=== PATIENT | female | born 1935 | race Caucasian/White ===

== ENCOUNTER 2016-11-24 09:33 | Outpatient (CLI) | payer OTHER ==
[2016-02-16 14:55] VITALS: BMI 23.0
[2016-11-24 12:53] LABS: BASOPHILS % (AUTO) 0.6 % (0.0-3.0); EOSINOPHILS # (AUTO) 0.1 K/ul (0.0-0.7); EOSINOPHILS % (AUTO) 2.5 % (0.0-7.0); HEMATOCRIT 40.7 % (37.0-47.0); HEMOGLOBIN 13.7 g/dl (12.0-16.0); IMMATURE GRANULOCYTE % (AUTO) 0.2 % (0.0-5.0); LYMPHOCYTES # (AUTO) 1.1 K/uL (0.60-3.4); MEAN CORPUSCULAR HEMOGLOBIN 30.9 pg (27.0-31.0); MEAN CORPUSCULAR HGB CONC 33.7 (31.8-35.4); MEAN CORPUSCULAR VOLUME 91.9 fl (81.0-99.0); MONOCYTES # (AUTO) 0.5 K/uL (0.4-2.0); MONOCYTES % (AUTO) 10.1 (0-10); NEUTROPHILS % (AUTO) 63.6; PLATELET COUNT 231 10^3/uL (140-440); RED BLOOD COUNT 4.43 10^6/ul (4.20-5.40); WHITE BLOOD COUNT 4.74 K/ul (4.6-10.2)
[2016-11-24 13:11] LABS: BILIRUBIN,URINE Negative (NEGATIVE); KETONES,URINE Negative (NEGATIVE); LEUKOCYTE ESTERASE ,URINE Negative (NEGATIVE); NITRITE,URINE Negative (NEGATIVE); PROTEIN,URINE Negative (NEGATIVE); URINE, BLOOD Negative (NEGATIVE)
[2016-11-24 13:15] LABS: ADD URINE MICROSCOPIC NO
[2016-11-24 13:23] LABS: ALBUMIN 3.5 g/dL (3.4-5.0); ANION GAP 13.7; BILIRUBIN,TOTAL 0.41 mg/dL (0.00-1.20); BUN/CREATININE RATIO 16.66; CALCIUM 9.5 mg/dL (8.2-10.2); CHOL/HDL RATIO 2.5 (4.5-5.5); CREATININE 1.08 mg/dL (0.60-1.30); POTASSIUM 3.7 mmol/L (3.5-5.10)
== END 2016-11-24 09:34 | disposition home or self-care (01) ==
LOC: LAB 09:33
PROVIDERS: ATTEND General Practice
DX: D64.9 Anemia, unspecified (principal); I10 Essential (primary) hypertension; Z79.899 Other long term (current) drug therapy
CPT/HCPCS: 36415; 80053; 80061; 81001; 85025

== ENCOUNTER 2016-12-15 15:59 | Outpatient (CLI) ==
[2016-02-16 14:55] VITALS: BMI 23.0
[2016-12-15 17:28] LABS: BILIRUBIN,URINE Negative (NEGATIVE); KETONES,URINE Negative (NEGATIVE); LEUKOCYTE ESTERASE ,URINE Negative (NEGATIVE); NITRITE,URINE Negative (NEGATIVE); PROTEIN,URINE Negative (NEGATIVE); URINE, BLOOD Negative (NEGATIVE)
[2016-12-15 17:35] LABS: ADD URINE MICROSCOPIC NO
== END 2016-12-15 16:00 | disposition home or self-care (01) ==
LOC: LAB 15:59
PROVIDERS: ATTEND General Practice
DX: R30.0 Dysuria (principal)
CPT/HCPCS: 81001

== ENCOUNTER 2017-04-07 11:46 | Outpatient (CLI) | payer OTHER ==
[2016-02-16 14:55] VITALS: BMI 23.0
[2017-04-07 13:03] LABS: BASOPHILS % (AUTO) 0.6 % (0.0-3.0); EOSINOPHILS # (AUTO) 0.1 K/ul (0.0-0.7); EOSINOPHILS % (AUTO) 2.6 % (0.0-7.0); HEMATOCRIT 41.7 % (37.0-47.0); HEMOGLOBIN 14.1 g/dl (12.0-16.0); IMMATURE GRANULOCYTE % (AUTO) 0.2 % (0.0-5.0); LYMPHOCYTES # (AUTO) 1.2 K/uL (0.60-3.4); LYMPHOCYTES % (AUTO) 24.9 (10.0-50.0); MEAN CORPUSCULAR HEMOGLOBIN 30.9 pg (27.0-31.0); MEAN CORPUSCULAR HGB CONC 33.8 (31.8-35.4); MEAN CORPUSCULAR VOLUME 91.2 fl (81.0-99.0); MONOCYTES # (AUTO) 0.5 K/uL (0.4-2.0); NEUTROPHILS # (AUTO) 2.9 K/ul (2.0-6.9); NEUTROPHILS % (AUTO) 61.7; PLATELET COUNT 230 10^3/uL (140-440); RED BLOOD COUNT 4.57 10^6/ul (4.20-5.40); WHITE BLOOD COUNT 4.62 K/ul (4.6-10.2)
[2017-04-07 13:17] LABS: ALBUMIN 3.5 g/dL (3.4-5.0); ALBUMIN/GLOBULIN RATIO 1.09; ANION GAP 11.2; BILIRUBIN,TOTAL 0.49 mg/dL (0.00-1.20); BILIRUBIN,URINE Negative (NEGATIVE); BUN/CREATININE RATIO 17.54; CALCIUM 8.9 mg/dL (8.2-10.2); CHOL/HDL RATIO 2.6 (4.5-5.5); CREATININE 1.14 mg/dL (0.60-1.30); KETONES,URINE Trace (NEGATIVE); LEUKOCYTE ESTERASE ,URINE Negative (NEGATIVE); NITRITE,URINE Negative (NEGATIVE); PH,URINE 6.5 (5-9); POTASSIUM 3.2 mmol/L (3.5-5.10); PROTEIN,URINE 1+ (NEGATIVE); TOTAL PROTEIN 6.7 g/dL (5.8-8.1); URINE, BLOOD Negative (NEGATIVE)
[2017-04-07 13:19] LABS: ADD URINE MICROSCOPIC YES
[2017-04-07 13:48] LABS: BACTERIA,URINE 1+ (NOT PRESENT)
== END 2017-04-07 11:47 | disposition home or self-care (01) ==
LOC: LAB 11:46
PROVIDERS: ATTEND General Practice
DX: I10 Essential (primary) hypertension (principal); N18.3 Chronic kidney disease, stage 3 (moderate); D63.1 Anemia in chronic kidney disease; M79.7 Fibromyalgia; Z79.899 Other long term (current) drug therapy
CPT/HCPCS: 36415; 80053; 80061; 81001; 85025; 87086

== ENCOUNTER 2017-06-02 13:55 | Outpatient (CLI) ==
[2016-02-16 14:55] VITALS: BMI 23.0
[2017-06-02 14:14] LABS: BILIRUBIN,URINE Negative (NEGATIVE); KETONES,URINE Trace (NEGATIVE); LEUKOCYTE ESTERASE ,URINE Negative (NEGATIVE); NITRITE,URINE Negative (NEGATIVE); PROTEIN,URINE 1+ (NEGATIVE); URINE, BLOOD Negative (NEGATIVE)
[2017-06-02 14:18] LABS: ADD URINE MICROSCOPIC YES
[2017-06-02 14:23] LABS: BACTERIA,URINE 1+ (NOT PRESENT)
== END 2017-06-02 13:56 | disposition home or self-care (01) ==
LOC: LAB 13:55
PROVIDERS: ATTEND General Practice
DX: R30.0 Dysuria (principal); W57.XXXA Bitten or stung by nonvenomous insect and other nonvenomous arthropods, initial encounter
CPT/HCPCS: 36415; 81001; 86617; 87086

== ENCOUNTER 2017-06-19 15:54 | Outpatient (CLI) | payer OTHER ==
[2016-02-16 14:55] VITALS: BMI 23.0
[2017-06-23 13:16] LABS: IGG P18 AB Absent (.); IGG P23 AB Absent (.); IGG P28 AB Absent (.); IGG P30 AB Absent (.); IGG P39 AB Present (.); IGG P41 AB Present (.); IGG P45 AB Absent (.); IGG P58 AB Absent (.); IGG P66 AB Present (.); IGG P93 AB Absent (.); IGM P39 AB Absent (.); IGM P41 AB Absent (.); LYME IGG WB INTERP Negative (.); LYME IGM WB INTERP Negative (.)
== END 2017-06-19 15:55 | disposition home or self-care (01) ==
LOC: LAB 15:54
PROVIDERS: ATTEND General Practice
DX: R53.83 Other fatigue (principal); M79.7 Fibromyalgia; W57.XXXA Bitten or stung by nonvenomous insect and other nonvenomous arthropods, initial encounter
CPT/HCPCS: 36415; 86617

== ENCOUNTER 2017-07-07 15:08 | Outpatient (CLI) ==
[2016-02-16 14:55] VITALS: BMI 23.0
[2017-07-11 09:47] LABS: IGG P23 AB ABSENT; IGG P28 AB ABSENT; IGG P30 AB ABSENT; IGG P39 AB ABSENT; IGG P41 AB PRESENT; IGG P45 AB ABSENT; IGG P58 AB ABSENT; IGG P66 AB PRESENT; IGG P93 AB ABSENT
[2017-07-11 09:48] LABS: IGG P18 AB ABSENT
[2017-07-11 09:50] LABS: IGM P39 AB ABSENT; IGM P41 AB ABSENT; LYME IGG WB INTERP NEGATIVE
[2017-07-11 09:52] LABS: LYME IGM WB INTERP NEGATIVE
== END 2017-07-07 15:09 | disposition home or self-care (01) ==
LOC: LAB 15:08
PROVIDERS: ATTEND General Practice
DX: R53.83 Other fatigue (principal); M79.7 Fibromyalgia; W57.XXXA Bitten or stung by nonvenomous insect and other nonvenomous arthropods, initial encounter
CPT/HCPCS: 36415; 86617

== ENCOUNTER 2017-07-17 11:02 | Outpatient (CLI) ==
[2016-02-16 14:55] VITALS: BMI 23.0
--- NOTE | 2017-07-17 11:24 | DI ---
EXAM: Two views of the chest. History: Tachycardia Comparison: Chest radiograph 12/12/2015 Findings: Heart size is normal. No focal consolidation. No appreciable pleural fluid and no pneumo thorax. No acute osseous abnormalities. Scoliosis again noted. Impression: No acute cardiopulmonary process. No change compared to prior study.
--- NOTE | 2017-07-17 11:25 | DI ---
EXAM: Two views of the pelvis. History: Pelvic pain. Comparison: Pelvic radiograph 03/30/2015 Findings: No acute fracture or dislocation. Bilateral hip joint spaces are relatively preserved. D egenerative changes again seen within the lower lumbar spine. Nonspecific pelvic calcifications are most likely phleboliths. Impression: No acute osseous abnormality. 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
[2017-07-17 13:01] LABS: BASOPHILS # (AUTO) 0.1 K/uL (0-0.2); BASOPHILS % (AUTO) 0.9 % (0.0-3.0); EOSINOPHILS # (AUTO) 0.2 K/ul (0.0-0.7); EOSINOPHILS % (AUTO) 2.4 % (0.0-7.0); HEMATOCRIT 42.1 % (37.0-47.0); HEMOGLOBIN 14.6 g/dl (12.0-16.0); IMMATURE GRANULOCYTE % (AUTO) 0.3 % (0.0-5.0); LYMPHOCYTES # (AUTO) 1.3 K/uL (0.60-3.4); LYMPHOCYTES % (AUTO) 18.8 (10.0-50.0); MEAN CORPUSCULAR HEMOGLOBIN 30.9 pg (27.0-31.0); MEAN CORPUSCULAR HGB CONC 34.7 (31.8-35.4); MONOCYTES # (AUTO) 0.7 K/uL (0.4-2.0); MONOCYTES % (AUTO) 10.4 (0-10); NEUTROPHILS # (AUTO) 4.7 K/ul (2.0-6.9); NEUTROPHILS % (AUTO) 67.2; PLATELET COUNT 269 10^3/uL (140-440); RED BLOOD COUNT 4.73 10^6/ul (4.20-5.40); WHITE BLOOD COUNT 7.04 K/ul (4.6-10.2)
[2017-07-17 13:03] LABS: ALBUMIN 3.5 g/dL (3.4-5.0); ALBUMIN/GLOBULIN RATIO 0.95; ANION GAP 15.1; BILIRUBIN,TOTAL 0.49 mg/dL (0.00-1.20); BUN/CREATININE RATIO 14.54; CALCIUM 9.4 mg/dL (8.2-10.2); CHOL/HDL RATIO 2.8 (4.5-5.5); CREATININE 1.1 mg/dL (0.60-1.30); POTASSIUM 3.1 mmol/L (3.5-5.10); TOTAL PROTEIN 7.2 g/dL (5.8-8.1)
[2017-07-17 13:44] LABS: BILIRUBIN,URINE Negative (NEGATIVE); KETONES,URINE Trace (NEGATIVE); LEUKOCYTE ESTERASE ,URINE Trace (NEGATIVE); NITRITE,URINE Negative (NEGATIVE); PROTEIN,URINE 1+ (NEGATIVE); URINE, BLOOD Negative (NEGATIVE)
[2017-07-17 13:47] LABS: ADD URINE MICROSCOPIC YES
[2017-07-17 13:54] LABS: BACTERIA,URINE 2+ (NOT PRESENT)
== END 2017-07-17 11:03 | disposition home or self-care (01) ==
LOC: RAD 11:02
PROVIDERS: ATTEND General Practice
DX: R00.0 Tachycardia, unspecified (principal); I95.9 Hypotension, unspecified; N18.3 Chronic kidney disease, stage 3 (moderate); D63.1 Anemia in chronic kidney disease; I10 Essential (primary) hypertension; M79.1 Myalgia; Z79.899 Other long term (current) drug therapy
CPT/HCPCS: 36415; 80053; 80061; 81001; 85025; 87086; 87186

== ENCOUNTER 2017-07-28 16:27 | Outpatient (CLI) | payer OTHER ==
[2016-02-16 14:55] VITALS: BMI 23.0
== END 2017-07-28 16:28 | disposition home or self-care (01) ==
LOC: LAB 16:27
PROVIDERS: ATTEND General Practice
DX: N39.0 Urinary tract infection, site not specified (principal)

== ENCOUNTER 2017-08-25 10:57 | Outpatient (CLI) | payer OTHER ==
[2016-02-16 14:55] VITALS: BMI 23.0
--- NOTE | 2017-08-25 11:58 | CT ---
EXAM: CT pelvis without contrast HISTORY: Intra-abdominal and pelvic swelling, mass and lump, right buttock soft tissue mass COMPARISON: None TECHNIQUE: CT pelvis performed without intravenous contrast. Coronal and sagittal reformatted image s obtained. FINDINGS: No acute abnormalities of the bones. Degenerative change in the spine. Mild atherosclero sis. Bladder only minimally distended and poorly evaluated, grossly unremarkable. Uterus not visual ized, likely surgically absent. Mild to moderate fecal retention in the visualized colon. Colonic d iverticulosis. 1.4 cm right ovarian cyst, similar to CT 02/17/2010. Asymmetric soft tissue in the in fraischial region of the buttocks centered at image 55 measuring 3.9 x 3.5 cm. Small fat-containing u mbilical hernia. IMPRESSION: 1. Asymmetric soft tissue in the infraischial region of the buttocks measuring 3.9 x 3.5 cm.. This i s indeterminate. Correlation with MRI pelvis with contrast recommended for further evaluation. 2. Mild to moderate fecal retention. 3. Colonic diverticulosis
== END 2017-08-25 10:58 | disposition home or self-care (01) ==
LOC: RAD 10:57
PROVIDERS: ATTEND General Practice
DX: R19.00 Intra-abdominal and pelvic swelling, mass and lump, unspecified site (principal)

== ENCOUNTER 2017-09-29 12:48 | Outpatient (CLI) ==
[2016-02-16 14:55] VITALS: BMI 23.0
[2017-09-29 13:11] LABS: BASOPHILS % (AUTO) 0.9 % (0.0-3.0); EOSINOPHILS # (AUTO) 0.1 K/ul (0.0-0.7); EOSINOPHILS % (AUTO) 1.9 % (0.0-7.0); HEMATOCRIT 41.8 % (37.0-47.0); HEMOGLOBIN 13.9 g/dl (12.0-16.0); IMMATURE GRANULOCYTE % (AUTO) 0.2 % (0.0-5.0); LYMPHOCYTES # (AUTO) 1.1 K/uL (0.60-3.4); LYMPHOCYTES % (AUTO) 23.7 (10.0-50.0); MEAN CORPUSCULAR HEMOGLOBIN 30.7 pg (27.0-31.0); MEAN CORPUSCULAR HGB CONC 33.3 (31.8-35.4); MEAN CORPUSCULAR VOLUME 92.3 fl (81.0-99.0); MONOCYTES # (AUTO) 0.5 K/uL (0.4-2.0); MONOCYTES % (AUTO) 10.9 (0-10); NEUTROPHILS # (AUTO) 2.9 K/ul (2.0-6.9); NEUTROPHILS % (AUTO) 62.4; PLATELET COUNT 218 10^3/uL (140-440); RED BLOOD COUNT 4.53 10^6/ul (4.20-5.40); WHITE BLOOD COUNT 4.69 K/ul (4.6-10.2)
[2017-09-29 13:12] LABS: BILIRUBIN,URINE Negative (NEGATIVE); KETONES,URINE Negative (NEGATIVE); LEUKOCYTE ESTERASE ,URINE Negative (NEGATIVE); NITRITE,URINE Negative (NEGATIVE); PROTEIN,URINE Negative (NEGATIVE); URINE, BLOOD Negative (NEGATIVE)
[2017-09-29 13:13] LABS: ADD URINE MICROSCOPIC NO
[2017-09-29 13:26] LABS: ALBUMIN 3.3 g/dL (3.4-5.0); ANION GAP 14.7; BILIRUBIN,TOTAL 0.59 mg/dL (0.00-1.20); BUN/CREATININE RATIO 18.75; CALCIUM 9.1 mg/dL (8.2-10.2); CHOL/HDL RATIO 2.7 (4.5-5.5); CREATININE 0.96 mg/dL (0.60-1.30); POTASSIUM 3.7 mmol/L (3.5-5.10); TOTAL PROTEIN 6.6 g/dL (5.8-8.1)
== END 2017-09-29 12:49 | disposition home or self-care (01) ==
LOC: LAB 12:48
PROVIDERS: ATTEND General Practice
DX: I10 Essential (primary) hypertension (principal); N18.9 Chronic kidney disease, unspecified; D63.1 Anemia in chronic kidney disease
CPT/HCPCS: 36415; 80053; 80061; 81001; 85025

== ENCOUNTER 2018-02-09 10:56 | Outpatient (CLI) | payer OTHER ==
[2016-02-16 14:55] VITALS: BMI 23.0
== END 2018-02-09 10:57 | disposition home or self-care (01) ==
LOC: FCC-LAB 10:56
PROVIDERS: ATTEND General Practice
DX: D64.9 Anemia, unspecified (principal); I10 Essential (primary) hypertension; M79.7 Fibromyalgia; N18.3 Chronic kidney disease, stage 3 (moderate); Z79.899 Other long term (current) drug therapy
CPT/HCPCS: 36415; 80053; 80061; 81001; 85025; 87086

== ENCOUNTER 2018-02-19 15:48 | Outpatient (CLI) | payer OTHER ==
[2016-02-16 14:55] VITALS: BMI 23.0
--- NOTE | 2018-02-19 16:16 | DI ---
EXAM: CHEST FRONTAL AND LATERAL VIEWS HISTORY: Difficulty breathing. COMPARISON: 07/17/2017 FINDINGS: Heart size is within normal limits. There is diffuse, chronic appearing interstitial accen tuation. Lungs are hyperinflated and there is relative lucency of the lung zones suggesting the poss ibility of pulmonary emphysema. No acute infiltrates are seen. No vascular congestion. There is no consolidation, visible pleural fluid or pneumothorax. Bones reveal no acute fracture. IMPRESSION: Cannot exclude a component chronic obstructive pulmonary disease, correlate clinically. No acute cardiopulmonary process.
== END 2018-02-19 15:49 | disposition home or self-care (01) ==
LOC: RAD 15:48
PROVIDERS: ATTEND General Practice
DX: I49.9 Cardiac arrhythmia, unspecified (principal); R06.89 Other abnormalities of breathing; R09.89 Other specified symptoms and signs involving the circulatory and respiratory systems
CPT/HCPCS: 93005; 93010

== ENCOUNTER 2018-06-21 12:23 | Outpatient (CLI) | payer OTHER ==
[2016-02-16 14:55] VITALS: BMI 23.0
== END 2018-06-21 12:24 | disposition home or self-care (01) ==
LOC: FCC-LAB 12:23
PROVIDERS: ATTEND General Practice
DX: I10 Essential (primary) hypertension (principal); N18.3 Chronic kidney disease, stage 3 (moderate); D63.1 Anemia in chronic kidney disease; Z79.899 Other long term (current) drug therapy
CPT/HCPCS: 36415; 80053; 80061; 81001; 85025

== ENCOUNTER 2018-07-07 02:08 | Emergency (ER) ==
[2018-07-07 02:23] VITALS: TEMP 97.4; BMI 23.9
--- NOTE | 2018-07-07 02:54 | ED.PDOC ---
General ED Provider: Dr. SYLVIA STRONG Chief Complaint: Arrhythmia Stated Complaint: Patient is an 83 year old female who states that she has had no energy for 2 days. And that her heart rate has been in the 40's all day. She denies any chest pain or dizziness. she was seen in the cardiology clinic by the PA and her Propafenone was stopped and she was placed on Metoprolol Tartrate 25mg BID She was also started on Eliquis. She reports feeling slightly light headed hence took only half of her Metoprolol last night. Denies any headache or chest pain. Time Seen by Physician: 02:51 Mode of Arrival: Walk-In Information Source: Patient, Family Primary Care Provider: [facility] Seen Within Last 72 Hours for Same Complaint By: ED Nursing and Triage Documentation Reviewed and Agree: No Does patient meet sepsis criteria?: No If yes, has appropriate treatment been initiated?: No System Inflammatory Response Syndrome: Not Applicable Sepsis Protocol: For patient's 13 years and over: Temp is 96.8 and below OR 101 and greater Pulse >90 BPM Resp >20/minute Acutely Altered Mental Status Are patient's symptoms suggestive of a new infection, such as: -Pneumonia -Skin, Soft Tissue -Endocarditis -UTI -Bone, Joint Infection -Implantable Device -Acute Abdominal Infection -Wound Infection -Meningitis -Blood Stream Catheter Infection -Unknown Review of Systems - Review Of Systems Constitutional: Reports: No symptoms Eyes: Reports: No symptoms Ears, Nose, Mouth, Throat: Reports: No symptoms Respiratory: Reports: No symptoms Cardiac: Reports: Lightheadedness, Other (slow heart rate. ). Denies: Chest pain GI: Reports: No symptoms : Reports: No symptoms Musculoskeletal: Reports: No symptoms Skin: Reports: No symptoms Neurological: Reports: Anxiety Endocrine: Reports: No symptoms Hematologic/Lymphatic: Reports: No symptoms All Other Systems: Reviewed and Negative Past Medical History - Past Medical History Previously Healthy: Yes Endocrine: Reports: None Cardiovascular: Reports: A-Fib Respiratory: Reports: None Hematological: Reports: None Gastrointestinal: Reports: None Genitourinary: Reports: None Neuro/Psych: Reports: None Musculoskeletal: Reports: Arthritis, Other (FIBROMYALGIA ) Cancer: Reports: None Last Menstrual Period: menopausal - Surgical History General Surgical History: Reports: Hysterectomy, Cholecystectomy, Orthopedic ( BROKEN ARM ) - Family History Family History: Reports: Unknown - Social History Smoking Status: Never smoker Hx Substance Use: No Alcohol Screening: None - Immunizations Tetanus Shot up to Date: No (unsure) Physical Exam - Physical Exam Appearance: Ill-appearing Ill-appearing: Mild Eyes: EOMI, Conjunctiva clear ENT: Nose normal, Oropharynx normal Respiratory: Airway patent, Breath sounds clear, Breath sounds equal, Respirations nonlabored Cardiovascular: No rub, No murmur, Bradycardia GI/: Soft, Nontender, No masses, Bowel sounds normal, No Organomegaly Musculoskeletal: Normal strength, ROM intact, No edema, No calf tenderness Skin: Warm, Dry, Normal color Neurological: Cranial nerves intact, Alert, Oriented Psychiatric: Anxious Interpretation - 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 Course - Course Hematology/Chemistry: 07/07/18 03:00 Orders, Labs, Meds: Lab Review 07/07/18 03:00 WBC 4.69 RBC 4.10 L Hgb 12.5 Hct 36.9 L MCV 90.0 MCH 30.5 MCHC 33.9 RDW Coeff of Erik 13.0 Plt Count 172 Immature Gran % (Auto) 0.2 Neut % (Auto) 54.7 Lymph % (Auto) 30.5 Perry % (Auto) 10.2 H Eos % (Auto) 3.8 Baso % (Auto) 0.6 Immature Gran # (Auto) 0.0 Neut # (Auto) 2.6 Lymph # (Auto) 1.4 Perry # (Auto) 0.5 Eos # (Auto) 0.2 Baso # (Auto) 0.0 Orders Category Date Time Status EKG-(ED ONLY) Stat CARDIO 07/07/18 02:27 Completed Orthostatic [ED ORTHOSTATIC VITAL SIGNS] .ONCE EMERGENCY 07/07/18 03:15 Ordered CBC W/ AUTO DIFF Stat LAB 07/07/18 03:00 Completed COMPREHENSIVE METABOLIC PANEL Stat LAB 07/07/18 03:00 Received CREATINE KINASE Stat LAB 07/07/18 03:00 Received MAGNESIUM Stat LAB 07/07/18 03:14 Ordered TROPONIN I Stat LAB 07/07/18 03:00 Received Vital Signs: Temp Pulse Resp BP Pulse Ox 07/07/18 02:11 97.4 F L 50 L 18 173/74 H 92 L DONNY Risk Score Age >/= 65: Yes >/= 3 CAD Risk Factors: Yes Known CAD (Stenosis >/= 50%): No ASA Use in Past 7 Days: Yes Severe Angina (>/= 2 episodes in 24 hours): No EKG ST Changes >/= 0.5mm: No Postive Cardiac Marker: No DONNY Total Score: 3 DONNY Risk Score: Risk Score Odds of by 30D 0 0.1 (0.1-0.2) 1 0.3 (0.2-0.3) 2 0.4 (0.3-0.5) 3 0.7 (0.6-0.9) 4 1.2 (1.0-1.5) 5 2.2 (1.9-2.6) 6 3.0 (2.5-3.6) 7 4.8 (3.8-6.1) Departure - Departure Time of Disposition: 03:59 Disposition: HOME SELF-CARE Discharge Problem: Bradycardia with 41-50 beats per minute Instructions: Bradycardia (ED) Condition: Stable Pt referred to PMD for follow-up: Yes IPMP verified?: No Additional Instructions: STOP TAKING METOPROLOL CALL YOU DOCTOR IN THE MORNING FOR AN APPOINTMENT. PUSH FLUIDS Allergies/Adverse Reactions: Allergies Iodinated Contrast- Oral and IV Dye Adverse Reaction (Verified 07/07/18 02:23) morphine Adverse Reaction (Verified 07/07/18 02:23) Home Medications: Ambulatory Orders Estrogens, Conjugated [Premarin] 1 tab PO EVERY OTHER DAY 05/08/15 Amlodipine Besylate 5 mg PO DAILY #90 tab-cap 08/24/17 Apixaban [Eliquis] 5 mg PO BID 07/07/18 Famotidine 40 mg PO DAILY 07/07/18 Metoprolol Tartrate 25 mg PO BID 07/07/18 Potassium Chloride 20 meq PO DAILY 07/07/18 Disposition Discussed With: Patient, Family
[2018-07-07 03:23] VITALS: BP 165/70
[2018-07-07] MEDS ORDERED: K-DUR PO STA (03:35)
== END 2018-07-07 03:49 | disposition home or self-care (01) ==
LOC: ED 02:08
DX: R00.1 Bradycardia, unspecified (principal); R53.83 Other fatigue; Z79.899 Other long term (current) drug therapy
CPT/HCPCS: 36415; 80053; 82550; 83735; 84484; 85025; 93005; 93010; 99283

== ENCOUNTER 2018-08-31 15:56 | Inpatient (IN) ==
[2018-08-31 16:56] VITALS: BMI 24.4
--- NOTE | 2018-08-31 20:59 | DI ---
Exam: Two views of the chest. Comparison: 02/19/2018. Reason for exam: Dyspnea. FINDINGS: No pneumothorax, pleural effusion, or focal consolidation. Patchy airspace opacities are seen bilaterally. The cardiac silhouette is mildly prominent in size. Parenchymal changes are seen consistent with chronic lung disease. Impression: Mild pulmonary vascular congestion in the setting of chronic lung disease without focal airspace cons olidation, pneumothorax or pleural effusion. Persistent mild cardiomegaly.
[2018-08-31] MEDS ORDERED: LOPRESSOR PO SCH (21:30)
[2018-08-31] MEDS: ULTRAM PO PRN (21:54)
[2018-08-31] MEDS: PEPCID PO SCH (21:54)
[2018-08-31] MEDS: LYRICA PO SCH (21:55)
[2018-08-31] MEDS: K-DUR PO SCH ×2 (21:55→22:01)
[2018-08-31] MEDS ORDERED: MICRO-K CAP PO SCH (22:30)
[2018-09-01] MEDS: PEPCID PO SCH ×2 (05:54→16:41)
[2018-09-01] MEDS: HYDROCHLOROTHIAZIDE PO SCH (08:59)
[2018-09-01] MEDS: LYRICA PO SCH ×2 (09:00→20:19)
[2018-09-01] MEDS: LOPRESSOR PO SCH ×2 (09:00→16:41)
[2018-09-01] MEDS: NORVASC PO SCH (09:00)
[2018-09-01] MEDS: ULTRAM PO PRN ×2 (09:57→20:20)
[2018-09-01] MEDS: MICRO-K CAP PO SCH ×2 (09:57→16:41)
[2018-09-01] MEDS: K-DUR PO SCH (10:20)
[2018-09-01] MEDS ORDERED: ELIQUIS PO STA (19:49)
[2018-09-02] MEDS: PEPCID PO SCH (05:44)
[2018-09-02] MEDS: MICRO-K CAP PO SCH (08:15)
[2018-09-02] MEDS: HYDROCHLOROTHIAZIDE PO SCH (08:15)
[2018-09-02] MEDS: NORVASC PO SCH (08:16)
[2018-09-02] MEDS: LYRICA PO SCH (08:16)
[2018-09-02] MEDS: LOPRESSOR PO SCH (08:16)
[2018-09-02] MEDS: ULTRAM PO PRN (08:19)
[2018-09-02] MEDS ORDERED: COZAAR PO SCH (09:00)
[2018-09-02] MEDS ORDERED: ELIQUIS PO SCH (09:00)
--- NOTE | 2018-09-02 11:27 | PN ---
DATE OF SERVICE: 09/01/18 The patient was seen this evening about 7:40 p.m. The patient is alert, oriented times four, not dyspneic or tachypneic. She was admitted to the hospital because of the atrial fibrillation with slightly rapid ventricular response, heart rate being 100. She told me she was getting short of breath with exertion. She was quite concerned. She had been to Dr. Quezada and blood thinner was discontinued as well as the antiarrhythmic medications. She was told by Dr. Quezada that if she feels her heart is irregular that she could take the Eliquis. She should just take it when she feels the irregularity. I am not certain whether that is what transpired. She told me that Dr. Quezada said that it does work for him when he feels there is some irregularity in his heart then he takes the blood thinner. I did tell her that I tried to get in touch with Dr. Quezada this morning and left my cell phone number but I never did have a return call. I tried to call at 4:15 in the afternoon or so and the office was already closed. I told the patient that I have to talk to Dr. Quezada in the morning. The patient's vital signs at 5:39 p.m. today showed a temperature of 98.4, pulse rate of 94, blood pressure 139/63, respiratory rate 18, oxygen saturation 94% on room air and was 97 before that, about 3.5 hours. The rate at the time of my examination was between 62 to 66. The patient does tell me that if she takes the Eliquis that several hours after that she would have a GI bleed. Her coagulation profile is normal and her CBC showed normal WBC and normal platelet count and borderline anemia. Potassium was slightly lower and potassium was increased to 20 mEq twice daily instead of once a day. The NT-Pro-BNP was somewhat higher for her age 1,350. The chest x-ray did indicate mild pulmonary vascular congestion in the setting of chronic lung disease without focal air space consolidation, pneumothorax or pleural effusion. Persistent mild cardiomegaly. Lungs were clear to auscultation and no wheezing. Heart is audible , irregular but not tachycardic. Discussion with the patient as to the blood thinner and she was willing to take the blood thinner tomorrow and we will start her with half the dose of Eliquis, 2.5 mg in the morning twice a day. I hope to get in touch and discuss the case with Dr. Quezada, her field support representative. The patient is quite apprehensive about the aspect of cerebrovascular accident. SANDEE
[2018-09-02 13:09] VITALS: BP 115/69; TEMP 97.8
--- NOTE | 2018-09-02 14:15 | HP ---
DATE OF SERVICE: 08/31/18 CHIEF COMPLAINT: Fatigue, exertional shortness of breath and palpitations. HISTORY OF PRESENT ILLNESS: The patient presented to the office because of increasing fatigue and some shortness of breath with exertion. The patient also complained of her heart still being irregular. She did have a few rales at the bases more on the left side, fine. No expiratory wheezing. Heart is audible, irregular and tachycardic. She did tell me that her anticoagulant medication and other antiarrhythmic medications were discontinued. She was advised to take the anticoagulant if she feels the palpitation. The patient was then admitted to the hospital for further assessment. PAST PERSONAL HISTORY: The patient was admitted 02/16/16 to [place] because of dark stool and fatigue. The patient had severe anemia secondary to a GI bleed, maybe upper, transfused 3 units. Other previous problems are fibromyalgia, cardiac arrhythmia, atrial fibrillation on direct oral anticoagulant. Previous cholecystectomy, previous total abdominal hysterectomy, previous colonoscopies multiple, last one three years ago. The patient during that admission had a hemoglobin of 6.0; after three units it did go up to 9.1. Hematocrit on admission was 18.7 in 2016. FAMILY HISTORY: Progressive neuromuscular disease involving father and nephews. The son of myocardial infarction at age 39. Sister had cerebral aneurysm and was operated but resulted in left hemiplegia post surgery. SOCIAL HISTORY: The patient is a and resides alone and is self sufficient. She never did smoke. No alcoholic beverages. She is now 83 years of age. MEDICATIONS: Premarin 1.25 mg every other day Hydrochlorothiazide 12.5 mg Lyrica 75 mg capsule b.i.d. Tramadol/APAP 37.5 - 325 one tablet twice a day KCL 20 mEq daily Pepcid 40 mg daily Amlodipine 5 mg daily ALLERGIES: IODINATED CONTRAST ORAL AND IV, MORPHINE. REVIEW OF SYSTEMS: CONSTITUTIONAL: The patient is complaining of fatigue, progressive. No fever, no chills. VISUAL: Denies any double vision, loss of vision or blurred vision. AUDITORY: Hearing is adequate. No tinnitus. No pain or drainage. RESPIRATORY: The patient does not have any significant cough, shortness of breath on admission with no hemoptysis. CARDIOVASCULAR: Denies any chest tightness. The patient does have palpitations. She experiences shortness of breath with exertion. GASTROINTESTINAL: Denies any nausea, anorexia, dysphagia or abdominal pain or change in bowel habits. GENITOURINARY: Denies any pain on urination, urgency or frequency. MUSCULOSKELETAL: The patient has pain secondary to fibromyalgia. INTEGUMENT: No rash, pruritus or ecchymosis. ENDOCRINE: Negative. HEMATOLOGIC: Negative except the patient had severe anemia three years ago with hemoglobin of 6, hematocrit of 18. Anemia was secondary to a GI bleed. The patient's medication during that time was Pradaxa 75 mg twice a day. Antiarrhythmic was Propanone 25 mg capsule twice a day. Other medications are the same. PSYCHIATRIC: Affect is normal, always cheerful. PHYSICAL EXAMINATION: GENERAL: 83-year-old female admitted to the hospital because of increasing fatigue and shortness of breath on exertion with irregular heart rate and rapid. VITAL SIGNS: On admission, temperature 97.9, pulse rate 110, blood pressure 182/ 100 left, 168/97 right. Respiratory rate 20, oxygen saturation 97 on room air, 5 '9, 165 lbs, 5.54 ozs. BMI 24.4. HEAD: Unremarkable. Scalp no active dermatitis. FACE: Symmetrical and equal with no redness. No facial weakness. No tenderness to palpation and/or pressure on the frontomaxillary sinus areas. EYES: Pupils equal/reactive to light about 3 mm in size. Conjunctivae not pale. Sclerae not icteric. MOUTH: Unremarkable. THROAT: No inflammation, tumors or exudate. NECK: No masses. No bruit. No tenderness. No rigidity. CHEST: Symmetrical and equal with good expansion. No remarkable tenderness. LUNGS: Breath sounds are heard on both sides with rales, fine at the bases. No wheezing. HEART: Audible and irregular with good tones. No murmurs. Tachycardic. ABDOMEN: Flat, soft with no remarkable tenderness. No guarding. Bowel sounds active. No masses palpable. No bruit. EXTERNAL GENITALIA: Not examined. RECTAL: Not performed. LOWER EXTREMITIES: Symmetrical and equal with no significant edema. Posterior tibials are present. Anterior tibials are absent. UPPER EXTREMITIES: Symmetrical and equal. ASSESSMENT: 1. INCREASING FATIGUE 2. EXERTIONAL DYSPNEA 3. ATRIAL FIBRILLATION WITH RAPID VENTRICULAR RESPONSE 4. HYPERTENSION, UNCONTROLLED 5. HISTORY OF FIBROMYALGIA 6. HISTORY OF SEVERE ANEMIA, 2016, SECONDARY TO GI BLEED PROBABLY UPPER GI 7. HISTORY OF MULTIPLE COLONOSCOPIES TIMES 10 8. FAMILY HISTORY OF PROGRESSIVE NEUROMUSCULAR DYSTROPHY TIME SPENT: GREATER THAN 65 MINUTES MTDD
--- NOTE | 2018-09-02 14:32 | DS ---
DATE OF SERVICE: 09/02/18 PATIENT IDENTIFICATION: 83-year-old female seen at the office initially and subsequently admitted because of increasing fatigue and exertional dyspnea with a rapid heart rate and irregular. This patient is known to have atrial fibrillation. The patient had a GI bleed so the anticoagulants were discontinued. This patient was on Pradaxa at the lower dose when she had the GI bleeding. Anticoagulant medication plus the anticoagulant were discontinued. The patient' s initial examination revealed an alert individual who is cooperative, not dyspneic or tachypneic at rest. She was not pale. Lungs have fine rales at the bases, a little more on the left. No wheezing. Heart is audible and irregular, slightly tachycardic, rate of 110 at the office or 120. The rest of the examination was unremarkable except for the absence of the anterior tibial pulses. The patient, during this admission, had heart rate of 110. The patient's medication were resumed and Metoprolol Tartrate 25 mg was added. Heart rate began to decrease and by late evening of 08/31/18 was 86 and a blood pressure was lower now at 164/94. The blood pressure continued to go lower as well as heart rate. Blood pressure was almost normal every time from 09/01 to 09/02. Vital signs at 1 p.m. 09/02/18 showed a temperature 97.8, pulse 72, blood pressure 115/69, respiratory rate 18. The patient is on room air. The rhythm is still atrial fibrillation but the rate now is normal. Labs showed normal hemoglobin and hematocrit although toward the lowest normal. WBC normal. Platelet count normal. Electrolytes normal except slightly lower potassium but higher than admission of 3.06 now 3.30. c02 was slightly highter 31.7. NT-Pro-BNP on admission was 1,350. Urinalysis was normal. TSH was 2.910. Chest x-ray showed mild pulmonary vascular congestion in the setting of chronic lung disease without local or focal airspace consolidation, pneumothorax or pleural effusion. Persistent mild cardiomegaly. The patient, at time of discharge, was alert, ambulatory with movement of all extremities. She is oriented, not dyspneic or tachypneic with no cyanosis. Heart is audible and irregular but no longer tachycardic. Lungs - breath sounds are heard on both sides with few rales at the left lower base. No expiratory wheezing. Legs have no tenderness in the calf muscles. The anterior tibials are absent. FINAL DIAGNOSES: 1. ATRIAL FIBRILLATION WITH CONTROLLED VENTRICULAR RESPONSE 2. CONGESTIVE HEART FAILURE, MILD OR MINIMAL 3. PERIPHERAL ARTERIAL DISEASE, ABSENT ANTERIOR TIBIALS 4. HYPERTENSION NOW CONTROLLED 5. HISTORY OF FIBROMYALGIA 6. HISTORY OF SEVERE ANEMIA ON 01/28/16, HEMOGLOBIN 6, HEMATOCRIT 18 7. HISTORY OF GI BLEED SECONDARY TO ANTICOAGULANT The patient is discharged from this facility to be transferred to [facility] under the services of Dr. Quezada. TIME SPENT: GREATER THAN 30 MINUTES MTDD
== END 2018-09-02 14:56 | DRG 293 ==
LOC: MEDSURG B 15:56
PROVIDERS: ADMIT General Practice; ATTEND General Practice
DX: I50.9 Heart failure, unspecified (principal); I73.9 Peripheral vascular disease, unspecified; I10 Essential (primary) hypertension; R53.83 Other fatigue; R06.00 Dyspnea, unspecified; R06.02 Shortness of breath
CPT/HCPCS: 36415; 80053; 81001; 82550; 83880; 84443; 84484; 85025; 85610; 85730; 93005; 93010

== ENCOUNTER 2018-09-02 15:05 | Outpatient (CLI) | payer OTHER | END 2018-09-02 15:06 | disposition home or self-care (01) | LOC: AMBL 15:05 | PROVIDERS: ATTEND Emergency Medicine | DX: I48.91 Unspecified atrial fibrillation (principal); I49.3 Ventricular premature depolarization ==

== ENCOUNTER 2018-11-11 15:38 | Outpatient (CLI) ==
--- NOTE | 2018-11-11 16:00 | DI ---
EXAM: CHEST FRONTAL AND LATERAL VIEWS HISTORY: Cough. COMPARISON: 08/31/2018 FINDINGS: Prominent heart size is stable. Left-sided pacemaker unit is new and appears grossly in n ormal position. Lungs are hyperinflated. No acute infiltrates are seen. No vascular congestion. T here is no consolidation, visible pleural fluid or pneumothorax. Bones reveal no acute fracture. IMPRESSION: No acute cardiopulmonary process.
== END 2018-11-11 15:39 | disposition home or self-care (01) ==
LOC: RAD 15:38
PROVIDERS: ATTEND General Practice
DX: R05 Cough (principal)

== ENCOUNTER 2019-06-10 08:43 | Outpatient (CLI) | END 2019-06-10 08:44 | disposition home or self-care (01) | LOC: RHC-LAB 08:43 | PROVIDERS: ATTEND General Practice | DX: R53.83 Other fatigue (principal); I10 Essential (primary) hypertension; N18.3 Chronic kidney disease, stage 3 (moderate); D63.1 Anemia in chronic kidney disease | CPT/HCPCS: 36415; 80053; 80061; 81001; 84443; 85025 ==

== ENCOUNTER 2023-05-21 17:24 | Observation (INO) ==
[2023-05-21] MEDS ORDERED: SODIUM CHLORIDE 1,000 ML IV STA ×3 (17:36→18:18)
[2023-05-21 17:57] LABS: BASOPHILS % (AUTO) 0.6 % (0.0-3.0); EOSINOPHILS # (AUTO) 0.2 K/ul (0.0-0.7); EOSINOPHILS % (AUTO) 3.6 % (0.0-7.0); HEMATOCRIT 34.9 % (37.0-47.0); HEMOGLOBIN 10.8 g/dl (12.0-16.0); IMMATURE GRANULOCYTE % (AUTO) 0.2 % (0.0-5.0); LYMPHOCYTES # (AUTO) 1.5 K/uL (0.60-3.4); LYMPHOCYTES % (AUTO) 32.3 (10.0-50.0); MEAN CORPUSCULAR HEMOGLOBIN 28.1 pg (27.0-31.0); MEAN CORPUSCULAR HGB CONC 30.9 (31.8-35.4); MEAN CORPUSCULAR VOLUME 90.6 fl (81.0-99.0); MONOCYTES # (AUTO) 0.5 K/uL (0.4-2.0); MONOCYTES % (AUTO) 10.8 (0-10); NEUTROPHILS # (AUTO) 2.5 K/ul (2.0-6.9); NEUTROPHILS % (AUTO) 52.5 % (42.2-75.2); PLATELET COUNT 186 10^3/uL (140-440); RDW COEFFICIENT OF VARIATION 14.6 % (11.6-14.8); RED BLOOD COUNT 3.85 10^6/ul (4.20-5.40); WHITE BLOOD COUNT 4.74 K/ul (4.6-10.2)
[2023-05-21 18:09] LABS: ALANINE AMINOTRANSFERASE 13.1 U/L (0-35); ALBUMIN 3.68 g/dL (3.5-5.0); ALKALINE PHOSPHATASE 63.9 U/L (53-141); ASPARTATE AMINO TRANSFERASE 19.9 U/L (14-36); BILIRUBIN,TOTAL 0.27 mg/dL (0.2-1.3); CALCIUM 8.45 mg/dL (8.4-10.2); CARBON DIOXIDE 32.9 mmol/L (22-30.0); CREATININE 1.56 mg/dL (0.60-1.30); GLUCOSE 89.7 mg/dL (74-106); POTASSIUM 3.97 mmol/L (3.5-5.1); SODIUM 137.5 mmol/L (134.5-145); TOTAL PROTEIN 6.89 g/dL (6.3-8.2)
[2023-05-21 18:17] LABS: PARTIAL THROMBOPLASTIN TIME 26.1 SEC (23.9-40.0); PROTHROMBIN TIME 9.5 SEC (9.3-11.0)
--- NOTE | 2023-05-21 18:27 | CT ---
EXAM: CT HEAD WITHOUT CONTRAST TECHNIQUE: Noncontrast CT of the head with multiple reformats. HISTORY: Altered mental status. Hypertension. COMPARISON: None. FINDINGS: No evidence of acute infarction, hemorrhage, or mass. Mild to moderate brain volume loss. Moderate scattered nonspecific white matter hypodensities, likel y chronic small vessel changes. Atherosclerotic calcifications of the carotid siphons. No brain herniation. Patent basilar cisterns. Ventricles are proportional to brain volume. No acute osseous abnormality. Degenerative changes of the temporomandibular joints. Bilateral lens replacements of the globes. Mild mucosal changes in the paranasal sinuses. IMPRESSION: No acute intracranial abnormality. All CT scans are performed using dose optimization techniques as appropriate to the performed exam an d include at least one of the following: Automated exposure control, adjustment of the mA and/or kV according t o size, and the use of iterative reconstruction technique.
[2023-05-21] MEDS ORDERED: TYLENOL PO PRN (18:52)
[2023-05-21] MEDS: LACTATED RINGERS 1,000 ML IV STA ×2 (20:06→20:49)
[2023-05-21] MEDS ORDERED: ASPIRIN RC ONE (20:32)
[2023-05-21] MEDS ORDERED: HYDRALAZINE HCL IVP PRN (20:33)
--- NOTE | 2023-05-21 20:42 | ED.PDOC ---
General ED Provider: Dr. MO TATE DO Chief Complaint: Stroke Stated Complaint: Patient is a 88 yo F here for clinic concerns for RLE weakness Patient arrives afebrile and vitally stable by POV with drsinanughter She reports she has felt weak for 48 hours and her right leg feels heavier than her left She ambualted well to bed 5 NIHSS 0 No falls or injuries Patient taking all medications as prescribed She denies sick contacts No recent travel or medicaiont changes Alert and orietned x4 CHS 15 No pain No sob No dysuria Time Seen by Provider: 05/21/23 17:35 Information Source: Patient Primary Care Provider: DIMAS HIRSCH MD Nursing and Triage Documentation Reviewed and Agree: Yes Review of Systems Review Of Systems Constitutional: Reports Weakness; Denies Chills or Fever Eyes: Denies Blindness or Vision change Ears, Nose, Mouth, Throat: Denies Ear pain, Ear discharge or Nose pain Respiratory: Denies Cough, Orthopnea or Shortness of Breath Cardiac: Denies Chest pain or Lightheadedness GI: Denies Abdominal pain, Blood streaked bowels, Constipated or Diarrhea : Denies Dysuria, Discharge or Frequency Musculoskeletal: Denies Back pain, Joint pain or Joint swelling Skin: Denies Bruising or Rash Neurological: Reports Weakness (BL LE); Denies Anxiety or Depressed Endocrine: Denies Excessive sweating or Flushing Hematologic/Lymphatic: Reports No symptoms All Other Systems: Reviewed and Negative [facility] Medical History Calf tenderness M79.669 - Pain in unspecified lower leg (ICD-10) Dysuria R30.0 - Dysuria (ICD-10) Fibromyalgia M79.7 - Fibromyalgia (ICD-10) PAF (paroxysmal atrial fibrillation) I48.0 - Paroxysmal atrial fibrillation (ICD-10) Pharyngitis J02.9 - Acute pharyngitis, unspecified (ICD-10) Rectal bleed K62.5 - Hemorrhage of anus and rectum (ICD-10) Social History Smoking and tobacco status: Never smoker Second hand smoke exposure: No Alcohol intake: never Counseling given: No Counseling provided: none Substance use type: does not use Counseling given: No Counseling provided: none Lissy/pentecostalism: [facility] Special lissy needs: No Agree to transfusion: Yes Adopted: No Foster care: No Household members: none Housing: house Marital status: W / Number of children: 1 Number of grandchildren: 4 Highest education level completed: 12th grade, no diploma Financial difficulty paying for basics: not very hard service: No skilled nursing: No Current occupational status: retired Current occupational exposures/hazards: No History of recent travel: No Sexually active: No Do you think of yourself as: straight/heterosexual Current gender identity: female Seatbelt use: always Drives intoxicated or rides with 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 Surgical History Implantation of cardiac pacemaker S/P ablation of atrial fibrillation Z98.890 - Other specified postprocedural states (ICD-10) Z86.79 - Personal history of other diseases of the circulatory system (ICD- 10) S/P ablation of atrial fibrillation Z98.890 - Other specified postprocedural states (ICD-10) Z86.79 - Personal history of other diseases of the circulatory system (ICD- 10) Status post cholecystectomy Z90.49 - Acquired absence of other specified parts of digestive tract (ICD- 10) Status post hysterectomy Z90.710 - Acquired absence of both cervix and uterus (ICD-10) Female Reproductive History Menstrual Hx Hysterectomy: Yes Hx Tubal Ligation: No Physical Exam Physical Exam Appearance: Reports Well-appearing and Well-nourished Ill-appearing: Not Applicable Pain Distress: Not Applicable Eyes: Reports BAN, EOMI and Conjunctiva clear ENT: Reports Ears normal, Nose normal and Oropharynx normal Neck: Supple Respiratory: Reports Airway patent and Breath sounds clear Cardiovascular: Reports RRR and Pulses normal GI/: Reports Soft and Nontender Musculoskeletal: Reports Normal strength, ROM intact and No edema Skin: Reports Warm, Dry and Normal color Neurological: Reports Sensation intact, Motor intact, Reflexes intact and Cranial nerves intact Psychiatric: Reports Affect appropriate and Mood appropriate Critical Care Note Critical Care Note Total Critical Care Time (mins): 0 Course Course 05/21/23 17:51 05/21/23 17:51 Orders, Labs, Meds: Lab Review 05/21/23 17:51 WBC 4.74 RBC 3.85 L Hgb 10.8 L Hct 34.9 L MCV 90.6 MCH 28.1 MCHC 30.9 L RDW Coeff of Erik 14.6 Plt Count 186 Immature Gran % (Auto) 0.2 Neut % (Auto) 52.5 Lymph % (Auto) 32.3 [place] % (Auto) 10.8 H Eos % (Auto) 3.6 Baso % (Auto) 0.6 Neut # (Auto) 2.5 Lymph # (Auto) 1.5 [place] # (Auto) 0.5 Eos # (Auto) 0.2 Baso # (Auto) 0.0 Immature Gran # (Auto) 0.0 PT 9.5 INR 0.91 APTT 26.1 Sodium 137.5 Potassium 3.97 Chloride 100.0 Carbon Dioxide 32.9 H Anion Gap 8.57 BUN 18.0 H Creatinine 1.56 H Estimated GFR (MDRD) 31.00 BUN/Creatinine Ratio 11.53 Glucose 89.7 Calcium 8.45 Total Bilirubin 0.27 AST 19.9 ALT 13.1 Alkaline Phosphatase 63.9 Total Protein 6.89 Albumin 3.68 Globulin 3.21 Albumin/Globulin Ratio 1.14 TSH 8.470 H Free T4 1.27 Orders Category Date Time Status ADMIT OBSERVATION [PLACE PATIENT OBSERVATION] .TO ADMISSION 05/21/23 18:55 Active MEDSURG (MONITORED BED) ECHOCARDIOGRAM 2D-M MODE Routine CARDIO 05/21/23 18:52 Ordered EKG-(ED ONLY) Stat CARDIO 05/21/23 17:37 Completed ACTIVITY .BR with BRP CARE 05/21/23 18:52 Active INTAKE & OUTPUT Q8HR CARE 05/21/23 18:52 Active NPO REMINDER: IMAGING ONCE CARE 05/21/23 17:38 Active TELEMETRY MONITORING TELE CARE 05/21/23 18:55 Active VITAL SIGNS Q4HR CARE 05/21/23 18:52 Active NOTHING BY MOUTH DIETARY 05/21/23 Dinner Ordered ED ACCUCHECK ASSESSMENT .ONCE EMERGENCY 05/21/23 17:36 Active ED APPLY O2 .ONCE EMERGENCY 05/21/23 17:36 Active ED IV/MEDIPORT/POWERPORT .ONCE EMERGENCY 05/21/23 17:36 Active CBC W/ AUTO DIFF DAILY@0600 LAB 05/22/23 06:00 Ordered CBC W/ AUTO DIFF DAILY@0600 LAB 05/23/23 06:00 Ordered CBC W/ AUTO DIFF Stat LAB 05/21/23 17:51 Completed COMPREHENSIVE METABOLIC PANEL DAILY@0600 LAB 05/22/23 06:00 Ordered COMPREHENSIVE METABOLIC PANEL DAILY@0600 LAB 05/23/23 06:00 Ordered COMPREHENSIVE METABOLIC PANEL Stat LAB 05/21/23 17:51 Completed FREE T4 (FREE THYROXINE) Stat LAB 05/21/23 17:51 Completed PARTIAL THROMBOPLASTIN TIME Stat LAB 05/21/23 17:51 Completed PT WITH INR Stat LAB 05/21/23 17:51 Completed TSH [THYROID STIMULATING HORMONE] Stat LAB 05/21/23 17:51 Completed 0.9 % Sodium Chloride [Saline Flush] Meds 05/21/23 17:36 Discontinued 1 syr IVF PRN PRN Acetaminophen [Tylenol] Meds 05/21/23 18:52 Active 650 mg PO Q4H PRN Ringers Lactated Solution [Lactated Ringers] 1,000 ml Meds 05/21/23 18:52 Active IV 100 mls/hr Sodium Chloride 0.9% [Sodium Chloride] 1,000 ml Meds 05/21/23 17:36 Discontinued IV 30 mls/hr Sodium Chloride 0.9% [Sodium Chloride] 1,000 ml Meds 05/21/23 17:36 Discontinued IV 50 mls/hr Sodium Chloride 0.9% [Sodium Chloride] 1,000 ml Meds 05/21/23 18:[address] HEAD W/O CONTRAST Stat RADS 05/21/23 17:36 Completed MRI BRAIN W/O CONTRAST Stat RADS 05/22/23 06:00 Ordered BEDSIDE SWALLOW EVALUATION Routine THERAPIES 05/21/23 18:52 Ordered OT CONSULTATION Routine THERAPIES 05/21/23 Ordered OT EVALUATION Routine THERAPIES 05/21/23 18:56 Ordered PT CONSULT Routine THERAPIES 05/21/23 Ordered PT INPATIENT EVALUATION Routine THERAPIES 05/21/23 Ordered Medications Generic Name Dose Route Start Last Admin Trade Name Freq PRN Reason Stop Dose Admin Acetaminophen 650 mg 05/21/23 18:52 Acetaminophen 325 Mg Tablet PO Q4H PRN Mild Pain Aspirin 300 mg 05/21/23 20:32 Aspirin 300 Mg Supp.Rect RC 05/21/23 20:33 ONCE ONE Hydralazine HCl 10 mg 05/21/23 20:33 Hydralazine Hcl 20 Mg/Ml Sdv IVP Q6H PRN Hypertension Lactated Ringer's 1,000 mls @ 100 mls/hr 05/21/23 18:52 05/21/23 20:06 Lactated Ringers IV 05/22/23 04:51 100 mls/hr .Q10H STA Administration Discontinued Medications Generic Name Dose Route Start Last Admin Trade Name Freq PRN Reason Stop Dose Admin Sodium Chloride 1,000 mls @ 50 mls/hr 05/21/23 17:36 05/21/23 18:00 Sodium Chloride IV 05/22/23 13:35 Not Given .Q20H STA Sodium Chloride 1,000 mls @ 30 mls/hr 05/21/23 17:36 05/21/23 18:00 Sodium Chloride IV 05/23/23 02:55 Not Given .[id number] STA Sodium Chloride 1,000 mls @ 1,000 mls/hr 05/21/23 18:18 Sodium Chloride IV 05/21/23 19:17 BOLUS STA Sodium Chloride 1 syr 05/21/23 17:36 0.9% Sodium Chloride 10 Ml Disp.Syrin IVF PRN PRN To flush IV Vital Signs: Temp Pulse Resp BP Pulse Ox 05/21/23 17:36 98.1 F 86 18 183/105 H 95 MDM: Patient is a 88 yo F here for BL LE weakness R more so than left for 48+ hours Patient afebrile with elevated BP Exam reassuring 3+ labs and 1 image reviewed by me Consults to hospitalist team - with RLE weakness, negative head ct will admit for TIA work up and MRI WDX: Strokelike symptoms, BL LE weakness, RENITA, dehydration acute condition moderate compelxity DDX: I considered ICH, sepsis, polypharmacy but these are less likely Patient admitted stable We discussed plan and all findings Discharge Plan Discharge Patient Disposition: PLACED OBSERVATION Discharge Problem: RENITA (acute kidney injury), Acute dehydration, Discomfort, Bilateral leg weakness Did you review [place] [employer] STEWARD/STEWARDESS for ALL controlled substances?: Not Applicable ED Provider: MO TATE Physician Progress Note: []
[2023-05-21 20:53] VITALS: BMI 24.7
[2023-05-21] MEDS ORDERED: ASPIRIN CHEWABLE PO STA (20:54)
[2023-05-21] MEDS ORDERED: ASPIRIN EC ONE (21:00)
[2023-05-22] MEDS ORDERED: ULTRAM PO ONE (01:59)
[2023-05-22 05:42] LABS: BASOPHILS % (AUTO) 0.7 % (0.0-3.0); EOSINOPHILS # (AUTO) 0.2 K/ul (0.0-0.7); EOSINOPHILS % (AUTO) 4.1 % (0.0-7.0); HEMATOCRIT 30.7 % (37.0-47.0); HEMOGLOBIN 9.6 g/dl (12.0-16.0); IMMATURE GRANULOCYTE % (AUTO) 0.2 % (0.0-5.0); LYMPHOCYTES # (AUTO) 1.6 K/uL (0.60-3.4); LYMPHOCYTES % (AUTO) 36.3 (10.0-50.0); MEAN CORPUSCULAR HEMOGLOBIN 28.3 pg (27.0-31.0); MEAN CORPUSCULAR HGB CONC 31.3 (31.8-35.4); MEAN CORPUSCULAR VOLUME 90.6 fl (81.0-99.0); MONOCYTES # (AUTO) 0.5 K/uL (0.4-2.0); MONOCYTES % (AUTO) 11.3 (0-10); NEUTROPHILS # (AUTO) 2.1 K/ul (2.0-6.9); NEUTROPHILS % (AUTO) 47.4 % (42.2-75.2); PLATELET COUNT 158 10^3/uL (140-440); RDW COEFFICIENT OF VARIATION 14.6 % (11.6-14.8); RED BLOOD COUNT 3.39 10^6/ul (4.20-5.40); WHITE BLOOD COUNT 4.44 K/ul (4.6-10.2)
[2023-05-22 06:01] LABS: ALANINE AMINOTRANSFERASE 11.6 U/L (0-35); ALBUMIN 3.07 g/dL (3.5-5.0); ALKALINE PHOSPHATASE 77.2 U/L (53-141); ASPARTATE AMINO TRANSFERASE 18.2 U/L (14-36); BILIRUBIN,TOTAL 0.17 mg/dL (0.2-1.3); BLOOD UREA NITROGEN 17.2 mg/dL (7-17); CALCIUM 8.4 mg/dL (8.4-10.2); CARBON DIOXIDE 34.6 mmol/L (22-30.0); CHLORIDE 101.4 mmol/L (98-107); CREATININE 1.29 mg/dL (0.60-1.30); GLUCOSE 95.8 mg/dL (74-106); POTASSIUM 3.42 mmol/L (3.5-5.1); SODIUM 137.8 mmol/L (134.5-145); TOTAL PROTEIN 5.72 g/dL (6.3-8.2)
--- NOTE | 2023-05-22 09:45 | RS.PTINEVL ---
Subjective Patient information Date of Evaluation: 05/22/23 Date of Arrival on Unit: 05/21/23 Admitted From:: Home Diagnosis: RENITA, acute dehydration TIA/CVA Usual Living Arrangement: Alone Home Environment: House, Stairs (few) and Rail Medical History: Hypertension and CVA/TIA Medical History Comments:: AFib, iron deficiency, fibromyalgia, shingles LATEX ALLERGY?: No Surgical History Comments:: pacemaker Medications: see chart Subjective Information/ Patient Comments:: pt states that she has been feeling weak for the last couple of weeks and states she is getting over the shingles. Level of function Prior to this admission, the patient could do the following:: Independent Selfcare, Independent ADL's, Independent Ambulation, Perform Manager Motor/Cooking, Drive and Participated in Social Activities Outside home Current Level of Function: Partially Dependent Current Equipment Used at Home: None Interventions Objective Patient Orientation: Person, Place, Time and Situation Current Interventions: Telemetry Range of Motion ROM Right Upper Extremity AROM: WFL's Left Upper Extremity AROM: WFL's Right Lower Extremity AROM: WFL's Left Lower Extremity AROM: WFL's Muscle Strength Muscle Strength Right Upper Extremity: Mild Weakness (grossly 4/5) Left Upper Extremity: Mild Weakness (grossly 4/5) Right Lower Extremity: Mild Weakness (hip flex 4-/5, knee flex/ext 4/5, ankle DF/PF 4/5) Left Lower Extremity: Mild Weakness (hip flex 4-/5, knee flex/ext 4/5, ankle DF/PF 4/5) Sensation Sensation Right Upper Extremity: Intact/Normal Left Upper Extremity: Intact/Normal Right Lower Extremity: Intact/Normal Left Lower Extremity: Intact/Normal Palpation Palpation Findings: None/Normal Coordination Tests Bilateral: Finger to Nose: Normal/Intact Heel to Orr: Mild Deviation Balance Sitting Balance and Reactions Static Sitting Balance: Good Dynamic Sitting Balance: Good Standing Balance and Reactions Static Standing Balance: Fair Dynamic Standing Balance: Poor Standing Equilibrium Reactions: Delayed Left and Delayed Right Standing Protective Reactions: Delayed Left and Delayed Right Comments Balance Assessment Comments: Tinetti score: 18/28 (without use of rwx) consistent with high risk of falls Functional Mobility Bed Mobility Rolling R/L: Independent Scooting: Independent Supine to Sit: Independent Transfers Sit to Stand: CGA Stand to Sit: CGA Safety Awareness Safety Awareness: Good ALFIE INDEX SCORE: n/a Ambulation Ambulation Orthotic/Prosthetic Device: No Distance: 85ft Assistance needed with Ambulation: CGA Gait Deviations: Forward posture, Short stride and Deviates from path Ambulation Comments: occasional scissoring and increased knee flex Factors Affecting Ambulation: Decreased Balance, Weakness, Decreased Coordination, Decreased Safety and Limited Endurance Treatment time Units charged Gait trainin Time with patient Length of Evaluation: 18 Total treatment time: 32 Patient Education Education Patient Education: Activity Modification and Education of Plan of Care Teaching Recipient: Patient Teaching Methods: Discussion and Demonstration Assessment Assessment Problem List:: Decreased level of function, Requires training/education, Decreased safety/Risk of falls, Weakness and Cognitive status limits abilities Rehab Potential: Good Further Therapy Indicated?: Yes Candidate for Swing Bed for Therapy Services?: Feel pt may benefit from outpatient PT or home health for LE strengthening/balance, may be too high level for swing bed for therapy. Evaluation Complexity: HISTORY: Medium, EXAM OF BODY SYSTEMS: Medium, CLINICAL PRESENTATION: Medium and CLINICAL DECISION MAKING: Medium Patient's Goal(s): Return home as independent as possible. Short Term Goals GOAL #1: pt transfer sit to/from stand independently Goal to be met by: 05/25/23 GOAL #2: pt amb with rwx 120ft with SBA Goal to be met by: 05/25/23 GOAL #3: Improve dyn stand balance as noted by tinetti score Goal to be met by: 05/25/23 GOAL #4: Improve BLE strength 4+/5 Goal to be met by: 05/25/23 Halfway Goals GOAL #1: pt amb functional household distances with rwx independently. Goal to be met by: 05/27/23 GOAL #2: Improve dyn stand balance Tinetti Goal to be met by: 05/27/23 GOAL #3: pt ascend/descend 2 steps independently. Goal to be met by: 05/27/23 Plan Plan of Care: Therapeutic EX, Neuromuscular Re-Educ and Therapeutic Activity Other:: gait training Frequency of Treatment: 1-2 X day, as tolerated Duration of Treatment: 4-5 days Anticipated Discharge Destination: Home Treatment Diagnosis (ICD 10 Codes): impaired balance R 26.81 gait difficulty R 26.2 weakness M62.81 Has the Physician been added for Co-signature?: Yes
--- NOTE | 2023-05-22 12:24 | ECHO2D ---
Date of Exam: 05/22/2023 Ordering Physician: DR. DIMAS HIRSCH Room #: 114 Reason for Echo: HTN, RENITA, SOB, WEAKNESS, H/O KAITLYNN M-Mode Normal Adult Results LV Dimensions Normal Adult Results AoV Opening excursions >1.6 >1.6 LVEDD-base- 3.5-5.8 4.2 Ao root dimensions 2.0-3.7 3.4 LVESD-base- 3.1-4.6 L. Atrium dimensions 1.9-3.8 3.9 Post. Wall thickness 0.8-1.1 1.2 IV septum (thickness) 0.7-1.2 1.2 Post. Wall excursion 0.72-1.3 NORMAL Septal motion NORMAL Systolic motion R. Ventricular cavity 1.5-2.0 NORMAL LVEF 60% 56% Paradoxical septal wall motion NORMAL 2-D : MITRAL VALVE PROLAPSE IN LEFT PARASTERNAL LONG AXIS, NORMAL LEFT VENTRICLE SIZE AND CONTRACTILITY--NORMAL RIGHT VENTRICLE SIZE, VALVES --NORMAL, NO EFFUSION, NO THROMBUS COLOR FLOW-MODERATE TRICUSPID REGURGITATION, AORTIC REGURGITATION AND MILD MITRAL REGURGITATION M-MODE: MV: MITRAL VALVE PROLAPSE LATE SYSTOLIC AV: NORMAL TV: NORMAL PV: NORMAL CHAMBER SIZE: NORMAL WALL MOTION: NORMAL PERICARDIUM: NORMAL INTERPRETATION: 1. LEFT VENTRICLE HYPERTROPHY 2. 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 NORMAL LEFT VENTRICLE CONTRACTILITY AND LEFT VENTRICLE SIZE 4. NORMAL LEFT ATRIAL SIZE 5. MODERATE TRICUSPID REGURGITATION, AORTIC REGURGITATION AND MILD MITRAL REGURGITATION MTDD
--- NOTE | 2023-05-22 12:41 | PCM.SS ---
Provider Provider[facility] Date Admission Date: 05/21/23 Discharge Date Discharge Date: 05/22/23 Primary Care Physician Primary Care Physician: DIMAS HIRSCH MD Chief Complaint Reason For Visit: TIA VS CVA History of Present Illness History of Present Illness: Admitted 05/21/23 19:10, this 88 year old /WHITE/F with pmhx of hypertension, shingles, pacemaker, fibromyalgia, atrial fibrillation who pr esented to the ER for overall not feeling well, high blood pressure, and lower ext weakness. Patient gives a long detailed history of having shingles back in January and then 2 other episodes that she has been treated for since. She contributes a lot of her symptoms to her episodes of shingles. However specifically this week she was in the ER a few days ago for elevated blood pressure. She states she was given some pills that made her blood pressure better and she went home. She states in the middle the night that night she had several large volume bowel movements which was unusual for her. Then on Thursday she just overall did not feel well and laid in bed most of the day. Yesterday she continued to not feel well and felt like her legs were very heavy and weak. She had a harder time walking than she normally does. However she was able to ambulate into the department. Either she or the ER provider felt that her right leg was little weaker than the left. CT of the head was neg ative. Labs were rather unremarkable except for mild RENITA and a TSH of 8.470. Looking back her TSH has been mildly elevated. She was admitted for further stroke work-up. On my evaluation today she states that she is feeling about the same she still feels as though her lower extremities are weak. She denies any diarrhea or abdominal pain today. She contributes this to everything going on recently with the shingles and her blood pressure running high. She has not been doing therapy in the pool as much at [facility]. She has not been eating and drinking as much. She does not feel that she has had a stroke. She has no other deficits. She does have a pacemaker and therefore we are not able to do an MRI today. Offered a repeat CT of the head today and/or scheduling her for an outpatient MR I. She declines the studies. She is agreeable to carotid ultrasound and echo today. She feels comfortable with going home after the studies are completed. She states she has a lot of family support. She denies home health at this time. UA from 48 hours ago was normal. [facility] Medical History Calf tenderness M79.669 - Pain in unspecified lower leg (ICD-10) Dysuria R30.0 - Dysuria (ICD-10) Fibromyalgia M79.7 - Fibromyalgia (ICD-10) PAF (paroxysmal atrial fibrillation) I48.0 - Paroxysmal atrial fibrillation (ICD-10) Pharyngitis J02.9 - Acute pharyngitis, unspecified (ICD-10) Rectal bleed K62.5 - Hemorrhage of anus and rectum (ICD-10) Surgical History Implantation of cardiac pacemaker S/P ablation of atrial fibrillation Z98.890 - Other specified postprocedural states (ICD-10) Z86.79 - Personal history of other diseases of the circulatory system (ICD- 10) S/P ablation of atrial fibrillation Z98.890 - Other specified postprocedural states (ICD-10) Z86.79 - Personal history of other diseases of the circulatory system (ICD- 10) Status post cholecystectomy Z90.49 - Acquired absence of other specified parts of digestive tract (ICD- 10) Status post hysterectomy Z90.710 - Acquired absence of both cervix and uterus (ICD-10) Social History Smoking and tobacco status: Never smoker Second hand smoke exposure: No Alcohol intake: never Counseling given: No Counseling provided: none Substance use type: does not use Counseling given: No Counseling provided: none Lissy/sikhism: JAINISM Special lissy needs: No Agree to transfusion: Yes Adopted: No Foster care: No Household members: none Housing: house Marital status: W / Number of children: 1 Number of grandchildren: 4 Highest education level completed: 12th grade, no diploma Financial difficulty paying for basics: not very hard service: No penitentiary: No Current occupational status: retired Current occupational exposures/hazards: No History of recent travel: No Sexually active: No Do you think of yourself as: straight/heterosexual Current gender identity: female Seatbelt use: always Drives 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 Medications Mecications: Medications at Discharge (Home Meds & RX) amlodipine 5 mg tablet 5 mg PO BID #180 tab-caps 01/12/23 apixaban 2.5 mg tablet (Eliquis) 2.5 mg PO BID #180 tabs 01/12/23 conjugated estrogens 1.25 mg tablet (Premarin) 1.25 mg PO EVERY OTHER DAY #45 tabs 01/12/23 famotidine 40 mg tablet 40 mg PO DAILY #90 tab-caps 01/12/23 metoprolol tartrate 25 mg tablet 25 mg PO BID #180 tabs 01/12/23 potassium chloride 10 mEq capsule,extended release 10 meq PO BID 90 days #180 tab-caps 01/12/23 pregabalin 75 mg capsule (Lyrica) 75 mg PO BID #180 tab-caps 01/12/23 oxybutynin chloride 5 mg tablet,extended release 24 hr See Rx Instructions .Route .COMPLEX #90 tabs 02/02/23 hydrochlorothiazide 25 mg tablet 25 mg PO QAM #90 tabs 02/13/23 tramadol 37.5 mg-acetaminophen 325 mg tablet 1 tab PO BID #180 tab-caps 03/02/23 amiodarone 200 mg tablet 100 mg PO DAILY 05/19/23 Allergies Allergies Allergy/AdvReac Type Severity Reaction Status Date / Time duloxetine [From Cymbalta] AdvReac Intermediate dizziness Verified 05/19/23 23:14 Iodinated Contrast Media AdvReac Mild burning Verified 05/19/23 23:14 [Iodinated Contrast- Oral and IV Dye] morphine AdvReac Mild mood Verified 05/19/23 23:14 changes Review of Systems Constitutional: Reports Fatigue and Weakness; Denies Fever or Chills Head: Reports Normocephalic and Atraumatic Eyes: Denies Vision Changes Throat: Denies Sore Throat or Difficulty Swallowing Cardiovascular: Denies Chest pain, Chest Pressure or Edema Respiratory: Denies Cough or Shortness of air Gastrointestinal: Reports Diarrhea (resolved); Denies Nausea, Vomiting or Abdominal pain Genitourinary: Denies Dysuria or Frequency Neurological: Reports Weakness and Problems with walking; Denies Headache, Dizziness, Syncope, Seizure or Speech difficulty Psychiatric: Denies Depression or Anxiety Physical Examination Appearance: Positive Well-appearing, Well-nourished, No Apparent Distress and Alert and Oriented x3 Head: Positive Normocephalic and Atraumatic Neck: Positive Supple and Non-Tender Heart: Positive RRR Respiratory: Positive Breath Sounds Clear, Bilaterally and Respirations Nonlabored; Negative Crackles, Rhonchi or Wheezes GI/: Positive Soft, Nontender, Bowel sounds normal and No Distention Extremities: Negative Edema Neurological: Positive Cranial nerves intact, Alert and Oriented Psychiatric: Positive Normal Judgement, Normal Insight, Affect Appropriate and Mood Appropriate; Negative Anxious or Depressed Vital Signs (Last 4 Hours) Vital Signs Last 4 Hours: Vital Signs: Last 4 Hours 05/22/23 10:00 Temperature 96.5 F L Temperature Source Temporal Artery Scan Pulse Rate 60 Respiratory Rate 18 Blood Pressure 164/72 H Blood Pressure Mean 102 Blood Pressure Location Left Arm Blood Pressure Position Sitting O2 Sat by Pulse Oximetry 95 Oxygen Delivery Method Room Air Labs This Visit Labs This Visit: Labs This Visit 05/21/23 05/22/23 17:51 05:00 WBC 4.74 4.44 L RBC 3.85 L 3.39 L Hgb 10.8 L 9.6 L Hct 34.9 L 30.7 L MCV 90.6 90.6 MCH 28.1 28.3 MCHC 30.9 L 31.3 L RDW Coeff of Erik 14.6 14.6 Plt Count 186 158 Immature Gran % (Auto) 0.2 0.2 Neut % (Auto) 52.5 47.4 Lymph % (Auto) 32.3 36.3 [place] % (Auto) 10.8 H 11.3 H Eos % (Auto) 3.6 4.1 Baso % (Auto) 0.6 0.7 Neut # (Auto) 2.5 2.1 Lymph # (Auto) 1.5 1.6 [place] # (Auto) 0.5 0.5 Eos # (Auto) 0.2 0.2 Baso # (Auto) 0.0 0.0 Immature Gran # (Auto) 0.0 0.0 PT 9.5 INR 0.91 APTT 26.1 Sodium 137.5 137.8 Potassium 3.97 3.42 L Chloride 100.0 101.4 Carbon Dioxide 32.9 H 34.6 H Anion Gap 8.57 5.22 BUN 18.0 H 17.2 H Creatinine 1.56 H 1.29 Estimated GFR (MDRD) 31.00 39.00 BUN/Creatinine Ratio 11.53 13.33 Glucose 89.7 95.8 Calcium 8.45 8.40 Total Bilirubin 0.27 0.17 L AST 19.9 18.2 ALT 13.1 11.6 Alkaline Phosphatase 63.9 77.2 Total Protein 6.89 5.72 L Albumin 3.68 3.07 L Globulin 3.21 2.65 Albumin/Globulin Ratio 1.14 1.15 TSH 8.470 H Free T4 1.27 Imaging Imaging: EXAM: CT HEAD WITHOUT CONTRAST TECHNIQUE: Noncontrast CT of the head with multiple reformats. HISTORY: Altered mental status. Hypertension. COMPARISON: None. FINDINGS: No evidence of acute infarction, hemorrhage, or mass. Mild to moderate brain volume loss. Moderate scattered nonspecific white matter hypodensities, likely chronic small vessel changes. Atherosclerotic calcifications of the carotid siphons. No brain herniation. Patent basilar cisterns. Ventricles are proportional to brain volume. No acute osseous abnormality. Degenerative changes of the temporomandibular joints. Bilateral lens replacements of the globes. Mild mucosal changes in the paranasal sinuses. IMPRESSION: No acute intracranial abnormality. EXAMINATION: BILATERAL CAROTID ULTRASOUND HISTORY: Stroke symptoms COMPARISON: None available. TECHNIQUE: Sonographic evaluation of the bilateral carotid arteries was performed with kinney scale and color and spectral Doppler imaging. Ultrasound images were acquired and stored in a permanent archive. FINDINGS: Plaque distribution: Mild plaque bilaterally in the carotid bifurcations. Arterial velocities measured in centimeters per second: Right common carotid artery peak systolic velocity: 69 Right internal carotid artery peak systolic velocity: 74 Right internal carotid artery end diastolic velocity: 12 Right ICA/CCA ratio: 1.1 Right external carotid artery peak systolic velocity: 55 Left common carotid artery peak systolic velocity: 68 Left internal carotid artery peak systolic velocity: 68 Left internal carotid artery end diastolic velocity: 10 Left ICA/CCA ratio: 1.0 Left external carotid artery peak systolic velocity: 61 Vertebrals: - Right: Antegrade flow with normal waveform. - Left: Antegrade flow with normal waveform. Society of Radiologists in Ultrasound (SRU) consensus statement (Radiology 2003; 229:340-346. DOI 10.1148/radiol.7401461594) was used to estimate internal carotid artery stenosis. IMPRESSION: 1. Less than 50% stenosis in the right internal carotid artery. 2. Less than 50% stenosis in the left internal carotid artery. 3. Right Vertebral Artery: Antegrade. 4. Left Vertebral Artery: Antegrade. Reason for Echo: HTN, RENITA, SOB, WEAKNESS, H/O KAITLYNN M-Mode Normal Adult Results LV Dimensions Normal Adult Results AoV Opening excursions >1.6 >1.6 LVEDD-base- 3.5-5.8 4.2 Ao root dimensions 2.0-3.7 3.4 LVESD-base- 3.1-4.6 L. Atrium dimensions 1.9-3.8 3.9 Post. Wall thickness 0.8-1.1 1.2 IV septum (thickness) 0.7-1.2 1.2 Post. Wall excursion 0.72-1.3 NORMAL Septal motion NORMAL Systolic motion R. Ventricular cavity 1.5-2.0 NORMAL LVEF 60% 56% Paradoxical septal wall motion NORMAL 2-D : MITRAL VALVE PROLAPSE IN LEFT PARASTERNAL LONG AXIS, NORMAL LEFT VENTRICLE SIZE AND CONTRACTILITY--NORMAL RIGHT VENTRICLE SIZE, VALVES --NORMAL, NO EFFUSION, NO THROMBUS COLOR FLOW-MODERATE TRICUSPID REGURGITATION, AORTIC REGURGITATION AND MILD MITRAL REGURGITATION M-MODE: MV: MITRAL VALVE PROLAPSE LATE SYSTOLIC AV: NORMAL TV: NORMAL PV: NORMAL CHAMBER SIZE: NORMAL WALL MOTION: NORMAL PERICARDIUM: NORMAL INTERPRETATION: 1. LEFT VENTRICLE HYPERTROPHY 2. 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 NORMAL LEFT VENTRICLE CONTRACTILITY AND LEFT VENTRICLE SIZE 4. NORMAL LEFT ATRIAL SIZE 5. MODERATE TRICUSPID REGURGITATION, AORTIC REGURGITATION AND MILD MITRAL REGURGITATION Review Review Statement: I have independently reviewed and interpreted the labs/EKGs/imaging that were ordered by the ER provider. I have reviewed all outside records that are available currently in our EMR including imaging/notes/labs from previous visits. Plan Additional Plannin. Lower extremity weakness - MRI initially ordered but patient has pacemaker. CT head negative. Carotid US and echo ordered. 2. Hypertensive urgency - Allowing permissive hypertension at this time due to stroke work up. 3. Hypokalemia, mild - Replaced 4. Elevated TSH Case discussed with ED Physician, Dr. House. DVT Prophylaxis: Advanced Care Plannin minutes spent discussing advance care planning. FULL CODE Admit to: Obs Discussed Plan of Care with Dr. Svetlana Stephens. Patient unable to undergo MRI here due to her pacemaker. Initial CT head negative. Offered to repeat a CT head or to set up an outpatient MRI but patient declines the studies. Patient's blood pressure has fluctuated between 160 and 190 systolic. It has been elevated for the last several days. She took her own medications this morning so the medications we had ordered were canceled. Carotid ultrasound negative for any acute findings. Echo showed normal EF but with some mitral valve prolapse and mitral regurgitation. She also has some moderate tricuspid regurgitation, aortic regurgitation. Would recommend outpatient cardiology follow-up for monitoring. Regarding patient's blood pressure she was given IV hydralazine which improved it. We will increase her hydrochlorothiazide to 50 mg daily. Recommended monitoring at home and taking to her PCP follow-up. Monitor bmp outpatient. Discussed starting low-dose levothyroxine due to TSH trending up. Repeat tsh in 6-8 weeks. Patient is agreeable. Review With Patient Reviewed with Patient and Family: Patient and family have been counseled on condition and care plan and have no immediate questions. I have personally discussed and reviewed the patient's visit/current labs/imaging/decision making with Dr. Svetlana Stephens, my supervising attending. Total number of minutes spent with patient [ 85 ] min. More than 50% of the time spent with this patient was devoted to counseling and coordination of care. Time of Admission:05/21/23 19:10 Time of Discharge: Discharge Plan Discharge Discharge Orders: Discharge Patient (ONCE); Ordered 05/22/23 Ordered By: LOIS LORD Activity Restrictions/Additional Instructions: DISCHARGE TO HOME DX: WEAKNESS, HYPERTENSION DIET: HEART HEALTHY ACTIVITY: TOLERATED, PT/OT RECOMMENDED PHARMACY: [facility] STARTED LEVOTHYROXINE YOU HAVE A FOLLOW UP APPOINTMENT WITH DR. HIRSCH' ON May AT 10:30AM. SHOULD YOU HAVE ANY QUESTIONS OR NEED TO RESCHEDULE YOU CAN CONTACT THEIR OFFICE AT [phone]. Patient Disposition: HOME SELF-CARE Prescriptions: New hydrochlorothiazide 50 mg tablet 50 mg PO DAILY Qty: 30 0RF levothyroxine 25 mcg capsule 25 mcg PO DAILY Qty: 30 0RF Continued amlodipine 5 mg tablet 5 mg PO BID Qty: 180 2RF Rx Instructions: Take one tablet twice daily. Eliquis 2.5 mg tablet 2.5 mg PO BID Qty: 180 1RF Premarin 1.25 mg tablet 1.25 mg PO EVERY OTHER DAY Qty: 45 1RF famotidine 40 mg tablet 40 mg PO DAILY Qty: 90 1RF metoprolol tartrate 25 mg tablet 25 mg PO BID Qty: 180 1RF potassium chloride 10 mEq capsule, extended release 10 meq PO BID 90 Days Qty: 180 3RF pregabalin [Lyrica] 75 mg capsule 75 mg PO BID Qty: 180 1RF Rx Instructions: Take 1 tablet twice daily. 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
[2023-05-22] MEDS ORDERED: LYRICA PO SCH (13:30)
[2023-05-22] MEDS ORDERED: DITROPAN XL PO SCH (13:30)
[2023-05-22] MEDS ORDERED: NORVASC PO SCH (13:30)
[2023-05-22] MEDS ORDERED: PEPCID PO SCH (13:30)
[2023-05-22] MEDS ORDERED: ELIQUIS PO SCH (13:30)
[2023-05-22] MEDS ORDERED: LOPRESSOR PO SCH (13:30)
[2023-05-22] MEDS ORDERED: CORDARONE PO SCH (13:30)
[2023-05-22] MEDS ORDERED: HYDROCHLOROTHIAZIDE PO SCH (14:00)
--- NOTE | 2023-05-22 15:22 | US ---
EXAMINATION: BILATERAL CAROTID ULTRASOUND HISTORY: Stroke symptoms COMPARISON: None available. TECHNIQUE: Sonographic evaluation of the bilateral carotid arteries was performed with kinney scale and color and spectral Doppler imaging. Ultrasound images were acquired and stored in a permanent [employer] ve. FINDINGS: Plaque distribution: Mild plaque bilaterally in the carotid bifurcations. Arterial velocities measured in centimeters per second: Right common carotid artery peak systolic velocity: 69 Right internal carotid artery peak systolic velocity: 74 Right internal carotid artery end diastolic velocity: 12 Right ICA/CCA ratio: 1.1 Right external carotid artery peak systolic velocity: 55 Left common carotid artery peak systolic velocity: 68 Left internal carotid artery peak systolic velocity: 68 Left internal carotid artery end diastolic velocity: 10 Left ICA/CCA ratio: 1.0 Left external carotid artery peak systolic velocity: 61 Vertebrals: - Right: Antegrade flow with normal waveform. - Left: Antegrade flow with normal waveform. Society of Radiologists in Ultrasound (SRU) consensus statement (Radiology 2003; 229:340-346. DOI 10 .1148/radiol.[id number]) was used to estimate internal carotid artery stenosis. IMPRESSION: 1. Less than 50% stenosis in the right internal carotid artery. 2. Less than 50% stenosis in the left internal carotid artery. 3. Right Vertebral Artery: Antegrade. 4. Left Vertebral Artery: Antegrade.
[2023-05-22] MEDS ORDERED: HYDRALAZINE HCL IVP ONE (15:32)
[2023-05-22] MEDS: K-DUR PO ONE ×2 (15:44→15:53)
[2023-05-22] MEDS ORDERED: MICRO-K CAP PO SCH (17:00)
[2023-05-22 17:13] VITALS: BP 168/72; PULSE 66; RESP 16; TEMP 97.3
== END 2023-05-22 17:45 | disposition home or self-care (01) ==
LOC: ED 17:24 → MEDSURG B 17:24
PROVIDERS: ADMIT Hospitalist; ATTEND Physician Assistant

== ENCOUNTER 2023-09-21 15:51 | Inpatient (IN) ==
--- NOTE | 2023-09-21 16:07 | ED.PDOC ---
General ED Provider: Dr. NEERAJ MCGARRY MD Chief Complaint: Shortness of Air Stated Complaint: weakness, shortness of breath 88-year-old female presents to the ER for evaluation of shortness of breath and fatigue. States she has had the symptoms for the past week. Reports she has had no energy. Has noticed swelling in her lower extremities. Feels a lot of tightness in her chest. Hurts when she tries to cough. States her cough is nonproductive. No fevers or illness symptoms. States she takes a diuretic and has been compliant with her medications. Saw her doctor in the office today and was sent to the ER for further evaluation. Time Seen by Provider: 09/21/23 15:58 Mode of Arrival: Walk-In Information Source: Patient Exam Limitations: No limitations Primary Care Provider: DIMAS HIRSCH MD Nursing and Triage Documentation Reviewed and Agree: Yes Review of Systems Review Of Systems Constitutional: Reports No symptoms and Malaise Respiratory: Reports Cough and Shortness of Breath Cardiac: Reports Edema All Other Systems: Reviewed and Negative [facility] Medical History Calf tenderness RESOLVED M79.669 - Pain in unspecified lower leg (ICD-10) Pharyngitis J02.9 - Acute pharyngitis, unspecified (ICD-10) Rectal bleed K62.5 - Hemorrhage of anus and rectum (ICD-10) Dysuria R30.0 - Dysuria (ICD-10) PAF (paroxysmal atrial fibrillation) I48.0 - Paroxysmal atrial fibrillation (ICD-10) Fibromyalgia 1992 M79.7 - Fibromyalgia (ICD-10) Social History Smoking and tobacco status: Never smoker Second hand smoke exposure: No Alcohol intake: never Counseling given: No Counseling provided: none Substance use type: does not use Counseling given: No Counseling provided: none 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: [employer] Special lissy needs: No Agree to transfusion: Yes Adopted: No Foster care: No Household members: none Housing: house Marital status: W / Number of children: 1 Number of grandchildren: 4 Highest education level completed: 12th grade, no diploma Financial difficulty paying for basics: not very hard service: No CHCF: No Current occupational status: retired Current occupational exposures/hazards: No History of recent travel: No Sexually active: No Do you think of yourself as: straight/heterosexual Current gender identity: female Seatbelt use: always Drives intoxicated or rides with intoxicated 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 Surgical History S/P ablation of atrial fibrillation Oct 03, 2019 Z98.890 - Other specified postprocedural states (ICD-10) Z86.79 - Personal history of other diseases of the circulatory system (ICD- 10) S/P ablation of atrial fibrillation January 02, 2020 Z98.890 - Other specified postprocedural states (ICD-10) Z86.79 - Personal history of other diseases of the circulatory system (ICD- 10) Implantation of cardiac pacemaker Dec 21, 2018 Pacemaker repaired [place] Status post hysterectomy Z90.710 - Acquired absence of both cervix and uterus (ICD-10) Status post cholecystectomy Z90.49 - Acquired absence of other specified parts of digestive tract (ICD- 10) Female Reproductive History Menstrual Hx Hysterectomy: Yes Hx Tubal Ligation: No Physical Exam Physical Exam Appearance: Reports Well-appearing Ill-appearing: None Pain Distress: None Eyes: Reports BAN ENT: Reports Oropharynx normal Neck: Supple Respiratory: Reports Airway patent and Other (Crackles bilateral bases, left greater than right) Cardiovascular: Reports RRR, Pulses normal and No rub GI/: Reports Soft and Nontender Musculoskeletal: Reports Edema Skin: Reports Warm and Dry Neurological: Reports Alert and Oriented Psychiatric: Reports Affect appropriate Interpretation EKG Interpretation EKG Interpretation By: ED Physician Time of EKG #1: 16:00 Rate: Normal Rhythm: Sinus Ectopy: None [place]: NL ST Segment: Normal Critical Care Note Critical Care Note Total Critical Care Time (mins): 0 Course Course 09/21/23 16:32 09/21/23 16:32 Orders, Labs, Meds: Lab Review 09/21/23 09/21/23 09/21/23 15:54 16:12 16:32 WBC 6.79 RBC 3.16 L Hgb 7.6 L Hct 25.8 L MCV 81.6 MCH 24.1 L MCHC 29.5 L RDW Coeff of Erik 16.2 H Plt Count 226 Immature Gran % (Auto) 0.3 Neut % (Auto) 63.3 Lymph % (Auto) 21.1 [place] % (Auto) 12.2 H Eos % (Auto) 2.7 Baso % (Auto) 0.4 Neut # (Auto) 4.3 Lymph # (Auto) 1.4 [place] # (Auto) 0.8 Eos # (Auto) 0.2 Baso # (Auto) 0.0 Immature Gran # (Auto) 0.0 Sodium 137.5 Potassium 3.64 Chloride 102.3 Carbon Dioxide 28.8 Anion Gap 10.04 BUN 20.8 H Creatinine 1.38 H Estimated GFR (MDRD) 36.00 BUN/Creatinine Ratio 15.07 Glucose 105.7 Lactic Acid 0.98 Calcium 8.44 Total Bilirubin 0.50 AST 38.6 H ALT 31.3 Alkaline Phosphatase 114.2 Troponin I < 0.012 NT-Pro-B Natriuret Pep 1780 H Total Protein 7.46 Albumin 4.17 Globulin 3.29 Albumin/Globulin Ratio 1.26 Urine Color Yellow Urine Clarity Clear Urine pH 7.0 Ur Specific [place] 1.015 Urine Protein Negative Urine Glucose (UA) Negative Urine Ketones Negative Urine Blood Negative Urine Nitrite Negative Urine Bilirubin Negative Urine Urobilinogen 1.0 H Ur Leukocyte Esterase Negative RSV Antigen Negative by naat SARS CoV-2 RNA Rapid [place] Negative Orders Category Date Time Status ADMIT PATIENT INPATIENT .TO MEDSURG (MONITORED BED) ADMISSION 09/21/23 17:09 Active EKG-(ED ONLY) Stat CARDIO 09/21/23 15:53 Completed TELEMETRY MONITORING TELE CARE 09/21/23 17:09 Active ED IV/MEDIPORT/POWERPORT .ONCE EMERGENCY 09/21/23 15:53 Active CBC W/ AUTO DIFF Stat LAB 09/21/23 16:32 Completed CMP [COMPREHENSIVE METABOLIC PANEL] Stat LAB 09/21/23 16:32 Completed ED PROBNP [NT-PROBNP(ED)] Stat LAB 09/21/23 16:32 Completed LACTIC ACID Stat LAB 09/21/23 16:32 Completed OCCULT BLOOD, STOOL Stat LAB 09/21/23 16:44 Uncollected RSV Stat LAB 09/21/23 16:12 Completed SARS COV-2 RNA RAPID [place] Stat LAB 09/21/23 15:54 Completed TROPONIN I Stat LAB 09/21/23 16:32 Completed TYPE AND SCREEN Stat LAB 09/21/23 17:03 Ordered UA [URINALYSIS C & S IF INDICATED] Stat LAB 09/21/23 16:12 Completed 0.9 % Sodium Chloride [Saline Flush] Meds 09/21/23 15:53 Active 1 syr IVF PRN PRN Furosemide [Lasix] Meds 09/21/23 17:07 Discontinued 40 mg IVP ONCE ONE CHEST, 1V AP ONLY Stat RADS 09/21/23 15:53 Completed Medications Generic Name Dose Route Start Last Admin Trade Name Freq PRN Reason Stop Dose Admin Sodium Chloride 1 syr 09/21/23 15:53 0.9% Sodium Chloride 10 Ml Disp.Syrin IVF PRN PRN To flush IV Discontinued Medications Generic Name Dose Route Start Last Admin Trade Name Freq PRN Reason Stop Dose Admin Furosemide 40 mg 09/21/23 17:07 Furosemide Inj 40 Mg/4 Ml Vial IVP 09/21/23 17:08 ONCE ONE Vital Signs: Temp Pulse Resp BP Pulse Ox 09/21/23 16:20 97.8 F 65 18 147/74 H 90 L Discharge Plan Discharge Patient Disposition: ADMITTED INPATIENT Discharge Problem: Fatigue, Anemia, Hemorrhoid, CHF (congestive heart failure), Hypoxia Prescriptions: No Action amlodipine 5 mg tablet 5 mg PO BID Qty: 180 2RF Rx Instructions: Take one tablet twice daily. metoprolol tartrate 25 mg tablet 25 mg PO BID Qty: 180 1RF potassium chloride 10 mEq capsule, extended release 10 meq PO BID 90 Days Qty: 180 3RF tramadol-acetaminophen 37.5-325 mg tablet 1 tab PO BID Qty: 180 1RF Rx Instructions: Chronic pain pregabalin [Lyrica] 75 mg capsule 75 mg PO BID Qty: 180 1RF Rx Instructions: Take 1 tablet twice daily. levothyroxine 37.5 mcg capsule 37.5 mcg PO DAILY Qty: 30 2RF hydrochlorothiazide 50 mg tablet See Rx Instructions .ROUTE .COMPLEX Qty: 90 1RF Dose Instruction: TAKE 1 TABLET DAILY Rx Instructions: TAKE 1 TABLET DAILY famotidine 40 mg tablet 40 mg PO DAILY Qty: 90 1RF Premarin 1.25 mg tablet 1.25 mg PO EVERY OTHER DAY Qty: 45 1RF amiodarone 200 mg tablet 100 mg PO DAILY Eliquis 2.5 mg tablet 2.5 mg PO BID Qty: 180 0RF oxybutynin chloride 5 mg tablet extended release 24hr See Rx Instructions .ROUTE .COMPLEX Qty: 90 1RF Dose Instruction: TAKE 1 TABLET DAILY Rx Instructions: TAKE 1 TABLET DAILY Did you review [place] MEDICAL PATHOLOGIST for ALL controlled substances?: Not Applicable ED Provider: NEERAJ MCGARRY Physician Progress Note: Medical decision making Patient with weight gain, shortness of breath, chest tightness. Patient with cardiac history including paroxysmal A-fib. Does take Eliquis. Patient reporting generalized weakness. Differential diagnosis includes congestive heart failure, pneumonia, pleural effusion, arrhythmia, anemia, electrolyte abnormality, urinary tract infection, viral syndrome. Last echo performed in April 2023 shows moderate TR and AR, mild MR, preserved EF at 65%, LVH. 4:19 PM Patient hypoxic on room air at 87%. 2 L per nasal cannula to be applied. 4:45 PM Patient's hemoglobin 7.6. 1 month ago was 9.3. Will perform fecal occult blood testing. 4:56 PM Patient notified of her acute on chronic anemia. States that she has a hemorrhoid that gives her problems all the time. She states that she suffers from anemia because of her hemorrhoid. She reports that it has been bleeding more than normal recently. She does take Eliquis. States that she has been resistant to give up her Eliquis due to the benefits of stroke prevention. But she does understand that it does contribute to her anemia as a result of her active hemorrhoids. Rectal exam deferred at this time secondary to known cause of anemia. Patient denies black stools. 5:13 PM Patient to be admitted to the hospital for hypoxia, anemia, congestive heart failure. Patient given a dose of furosemide in the ER. She has been typed and crossed. Will hold off on transfusion until inpatient determines if they wish to transfuse her. She might notice improvement with just diuresis. Patient and her family notified of results and are comfortable with plan.
[2023-09-21 16:29] LABS: BILIRUBIN,URINE Negative (NEGATIVE); CLARITY,URINE Clear (CLEAR); COLOR,URINE Yellow (YELLOW); GLUCOSE, URINE (UA) Negative (NEGATIVE); KETONES,URINE Negative (NEGATIVE); LEUKOCYTE ESTERASE ,URINE Negative (NEGATIVE); NITRITE,URINE Negative (NEGATIVE); PROTEIN,URINE Negative (NEGATIVE); URINE, BLOOD Negative (NEGATIVE)
[2023-09-21 16:38] LABS: BASOPHILS % (AUTO) 0.4 % (0.0-3.0); EOSINOPHILS # (AUTO) 0.2 K/ul (0.0-0.7); EOSINOPHILS % (AUTO) 2.7 % (0.0-7.0); HEMATOCRIT 25.8 % (37.0-47.0); HEMOGLOBIN 7.6 g/dl (12.0-16.0); IMMATURE GRANULOCYTE % (AUTO) 0.3 % (0.0-5.0); LYMPHOCYTES # (AUTO) 1.4 K/uL (0.60-3.4); LYMPHOCYTES % (AUTO) 21.1 (10.0-50.0); MEAN CORPUSCULAR HEMOGLOBIN 24.1 pg (27.0-31.0); MEAN CORPUSCULAR HGB CONC 29.5 (31.8-35.4); MEAN CORPUSCULAR VOLUME 81.6 fl (81.0-99.0); MONOCYTES # (AUTO) 0.8 K/uL (0.4-2.0); MONOCYTES % (AUTO) 12.2 (0-10); NEUTROPHILS # (AUTO) 4.3 K/ul (2.0-6.9); NEUTROPHILS % (AUTO) 63.3 % (42.2-75.2); PLATELET COUNT 226 10^3/uL (140-440); RDW COEFFICIENT OF VARIATION 16.2 % (11.6-14.8); RED BLOOD COUNT 3.16 10^6/ul (4.20-5.40); WHITE BLOOD COUNT 6.79 K/ul (4.6-10.2)
[2023-09-21 16:45] LABS: RSV MOLECULAR NEGATIVE BY NAAT (NEGATIVE)
[2023-09-21 16:52] LABS: ALANINE AMINOTRANSFERASE 31.3 U/L (0-35); ALBUMIN 4.17 g/dL (3.5-5.0); ALKALINE PHOSPHATASE 114.2 U/L (53-141); ASPARTATE AMINO TRANSFERASE 38.6 U/L (14-36); BLOOD UREA NITROGEN 20.8 mg/dL (7-17); CALCIUM 8.44 mg/dL (8.4-10.2); CARBON DIOXIDE 28.8 mmol/L (22-30.0); CHLORIDE 102.3 mmol/L (98-107); CREATININE 1.38 mg/dL (0.60-1.30); GLUCOSE 105.7 mg/dL (74-106); POTASSIUM 3.64 mmol/L (3.5-5.1); SODIUM 137.5 mmol/L (134.5-145); TOTAL PROTEIN 7.46 g/dL (6.3-8.2)
--- NOTE | 2023-09-21 16:56 | DI ---
EXAM: CHEST RADIOGRAPH TECHNIQUE: Single frontal chest radiograph. HISTORY: Shortness of breath. COMPARISON: 05/19/2023. FINDINGS: Mild left basilar atelectasis. Lungs are otherwise clear. The heart is mildly enlarged. Calcification in the aorta consistent with atherosclerosis. Left-side d multi lead pacemaker. There is no pleural effusion. There is no pneumothorax. IMPRESSION: 1. Mild left basilar atelectasis. 2. Mild cardiomegaly and atherosclerosis. 3. Pacemaker. 4. Otherwise unremarkable chest radiograph.
[2023-09-21 16:57] LABS: SARS COV-2 RNA RAPID NAAT NEGATIVE (NEGATIVE)
[2023-09-21 17:05] LABS: TROPONIN I < 0.012 ng/ml (0.0000-0.120)
[2023-09-21] MEDS ORDERED: LASIX IVP ONE (17:07)
[2023-09-21 17:56] VITALS: BMI 24.8
[2023-09-21] MEDS ORDERED: TYLENOL PO PRN (18:04)
[2023-09-21 18:23] LABS: IRON 14.9 ug/dL (37-170)
[2023-09-21 19:01] LABS: FERRITIN 6.26 ng/mL (11.1-264.0)
[2023-09-21 19:42] LABS: FOLATE > 20.00 ng/mL
[2023-09-21] MEDS: LOPRESSOR PO SCH (20:44)
[2023-09-21] MEDS ORDERED: LYRICA PO SCH (21:00)
[2023-09-21] MEDS ORDERED: DITROPAN XL PO SCH (21:00)
[2023-09-21] MEDS ORDERED: NORVASC PO SCH (21:00)
[2023-09-21] MEDS ORDERED: MICRO-K CAP PO SCH (21:00)
[2023-09-21] MEDS: ULTRAM PO SCH (22:24)
[2023-09-21] MEDS: TYLENOL PO SCH (22:24)
[2023-09-22] MEDS: LASIX IVP SCH ×2 (01:59→05:37)
[2023-09-22 05:36] LABS: BASOPHILS % (AUTO) 0.6 % (0.0-3.0); EOSINOPHILS # (AUTO) 0.2 K/ul (0.0-0.7); EOSINOPHILS % (AUTO) 4.1 % (0.0-7.0); HEMATOCRIT 27.8 % (37.0-47.0); HEMOGLOBIN 8.3 g/dl (12.0-16.0); IMMATURE GRANULOCYTE % (AUTO) 0.2 % (0.0-5.0); LYMPHOCYTES # (AUTO) 1.5 K/uL (0.60-3.4); LYMPHOCYTES % (AUTO) 28.4 (10.0-50.0); MEAN CORPUSCULAR HEMOGLOBIN 24.5 pg (27.0-31.0); MEAN CORPUSCULAR HGB CONC 29.9 (31.8-35.4); MONOCYTES # (AUTO) 0.7 K/uL (0.4-2.0); MONOCYTES % (AUTO) 13.8 (0-10); NEUTROPHILS # (AUTO) 2.8 K/ul (2.0-6.9); NEUTROPHILS % (AUTO) 52.9 % (42.2-75.2); PLATELET COUNT 192 10^3/uL (140-440); RDW COEFFICIENT OF VARIATION 16.4 % (11.6-14.8); RED BLOOD COUNT 3.39 10^6/ul (4.20-5.40); WHITE BLOOD COUNT 5.35 K/ul (4.6-10.2)
[2023-09-22 05:47] LABS: ALANINE AMINOTRANSFERASE 26.5 U/L (0-35); ALBUMIN 3.78 g/dL (3.5-5.0); ALKALINE PHOSPHATASE 93.5 U/L (53-141); ASPARTATE AMINO TRANSFERASE 29.2 U/L (14-36); BILIRUBIN,TOTAL 0.66 mg/dL (0.2-1.3); BLOOD UREA NITROGEN 19.9 mg/dL (7-17); CALCIUM 8.54 mg/dL (8.4-10.2); CARBON DIOXIDE 34.5 mmol/L (22-30.0); CREATININE 1.57 mg/dL (0.60-1.30); POTASSIUM 3.22 mmol/L (3.5-5.1); SODIUM 139.3 mmol/L (134.5-145); TOTAL PROTEIN 6.78 g/dL (6.3-8.2)
[2023-09-22] MEDS ORDERED: SYNTHROID PO SCH (06:00)
[2023-09-22] MEDS: MICRO-K CAP PO SCH ×2 (08:18→17:27)
[2023-09-22] MEDS: NORVASC PO SCH ×2 (08:19→20:58)
[2023-09-22] MEDS: CORDARONE PO SCH (08:19)
[2023-09-22] MEDS: TYLENOL PO SCH ×2 (08:19→20:58)
[2023-09-22] MEDS: LYRICA PO SCH ×2 (08:19→20:58)
[2023-09-22] MEDS: LOPRESSOR PO SCH ×2 (08:19→20:57)
[2023-09-22] MEDS: ULTRAM PO SCH ×2 (08:20→20:58)
[2023-09-22] MEDS: K-DUR PO ONE ×2 (09:14→09:39)
[2023-09-22] MEDS: PEPCID PO SCH (09:28)
[2023-09-22] MEDS ORDERED: MICRO-K CAP PO ONE (09:38)
--- NOTE | 2023-09-22 11:57 | PCM ---
Date of Service Date Seen by Provider: 09/22/23 Time Seen by Provider: 09:00 Admit Day/Time Admission Date: 09/21/23 Admission Time: 17:09 Reason for Admission Chief Complaint: ANEMIA; CHF Hospital Provider Hospital Provider: LOIS LORD PA-C, [facility] Primary Care Physician: DIMAS HIRSCH MD History of Present Illness History of Present Illness: Patient is a 88 year old from home with pmhx of hypothyroidism, shingles, pacemaker, chronic anemia, hypertension, fibromyalgia, a fib who presented to ER for sob/fatigue. Patient had been sent over by her PCP. Patient states she started feeling tired last week. Thought she overdid it with Thanksgiving. Then became SOB over the last few days. [place] so weak she was in her chair for about 24 hours. Didn't feel she could even take a shower. Noticed haley lower ext swelling yesterday which was new. She denies hx of CHF. She has hx of anemia but doesn't want to take iron. She states she has a hemorrhoid that bleeds often, especially at night. She is on eliquis for a fib. No melena. In ER she was found to have an acutely low hgb, hypoxic in the 80s placed on 2L, elevated bnp, lower ext edema. She was given lasix 40 x1. She was admitted to [facility] for further evaluation and treatment. On my evaluation this morning, patient is feeling some better. She received 1U PRBCS overnight and has been getting lasix. She is still requiring 2L. She diuresed about 1600 cc. She states her swelling is better from what she can tell. Case Discussed With Case Discussed With: Patient's case was discussed with the ER Physicians, Dr. Stern. [facility] Medical History Calf tenderness RESOLVED M79.669 - Pain in unspecified lower leg (ICD-10) Pharyngitis J02.9 - Acute pharyngitis, unspecified (ICD-10) Rectal bleed K62.5 - Hemorrhage of anus and rectum (ICD-10) Dysuria R30.0 - Dysuria (ICD-10) PAF (paroxysmal atrial fibrillation) I48.0 - Paroxysmal atrial fibrillation (ICD-10) Fibromyalgia 1991 M79.7 - Fibromyalgia (ICD-10) Surgical History S/P ablation of atrial fibrillation Oct 03, 2019 Z98.890 - Other specified postprocedural states (ICD-10) Z86.79 - Personal history of other diseases of the circulatory system (ICD- 10) S/P ablation of atrial fibrillation January 02, 2020 Z98.890 - Other specified postprocedural states (ICD-10) Z86.79 - Personal history of other diseases of the circulatory system (ICD- 10) Implantation of cardiac pacemaker Dec 21, 2018 Pacemaker repaired [place], [place] Status post hysterectomy Z90.710 - Acquired absence of both cervix and uterus (ICD-10) Status post cholecystectomy Z90.49 - Acquired absence of other specified parts of digestive tract (ICD- 10) Social History Smoking and tobacco status: Never smoker Second hand smoke exposure: No Alcohol intake: never Counseling given: No Counseling provided: none Substance use type: does not use Counseling given: No Counseling provided: none 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 Special lissy needs: No Agree to transfusion: Yes Adopted: No Foster care: No Household members: none Housing: house Marital status: W / Number of children: 1 Number of grandchildren: 4 Highest education level completed: 12th grade, no diploma Financial difficulty paying for basics: not very hard service: No MCC: No Current occupational status: retired Current occupational exposures/hazards: No History of recent travel: No Sexually active: No Do you think of yourself as: straight/heterosexual Current gender identity: female Seatbelt use: always Drives 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 Allergies Allergies Allergy/AdvReac Type Severity Reaction Status Date / Time duloxetine [From Cymbalta] AdvReac Intermediate dizziness Verified 09/21/23 15:24 Iodinated Contrast Media AdvReac Mild burning Verified 09/21/23 15:24 [Iodinated Contrast- Oral and IV Dye] morphine AdvReac Mild mood Verified 09/21/23 15:24 changes Current Medications Home Medications amlodipine 5 mg tablet 5 mg PO BID #180 tab-caps 01/12/23 [Rx Confirmed 09/21/23 Last Taken 05/21/23 08:00 5 mg] metoprolol tartrate 25 mg tablet 25 mg PO BID #180 tabs 01/12/23 [Rx Confirmed 09/21/23 Last Taken 05/22/23 08:00 25 mg] potassium chloride 10 mEq capsule,extended release 10 meq PO BID 90 days #180 tab-caps 01/12/23 [Rx Confirmed 09/21/23 Last Taken 05/21/23 17:00 10 mEq] amiodarone 200 mg tablet 100 mg PO DAILY 05/19/23 [History Confirmed 09/21/23 Last Taken 05/21/23 08:00 300 mg] oxybutynin chloride 5 mg tablet,extended release 24 hr See Rx Instructions .Route .COMPLEX #90 tabs 05/27/23 [Rx Confirmed 09/21/23 Last Taken Unknown] pregabalin 75 mg capsule (Lyrica) 75 mg PO BID #180 tab-caps 08/14/23 [Rx Confirmed 09/21/23 Last Taken Unknown] tramadol 37.5 mg-acetaminophen 325 mg tablet 1 tab PO BID #180 tab-caps 08/14/23 [Rx Confirmed 09/21/23 Last Taken Unknown] levothyroxine 37.5 mcg capsule 37.5 mcg PO DAILY #30 caps 08/20/23 [Rx Confirmed 09/21/23 Last Taken Unknown] famotidine 40 mg tablet 40 mg PO DAILY #90 tab-caps 09/08/23 [Rx Confirmed 09/21/23 Last Taken Unknown] hydrochlorothiazide 50 mg tablet See Rx Instructions .Route .COMPLEX #90 tabs 09/08/23 [Rx Confirmed 09/21/23 Last Taken Unknown] conjugated estrogens 1.25 mg tablet (Premarin) 1.25 mg PO EVERY OTHER DAY #45 tabs 09/09/23 [Rx Confirmed 09/21/23 Last Taken Unknown] apixaban 2.5 mg tablet (Eliquis) 2.5 mg PO BID #180 tabs 09/21/23 [Rx Confirmed 09/21/23 Last Taken Unknown] Home Acetaminophen (Acetaminophen 325 Mg Tablet) 650 mg PO Q4H PRN PRN Reason: Mild Pain Acetaminophen (Acetaminophen 325 Mg Tablet) 325 mg PO BID [facility] Last Admin: 09/22/23 08:19 Dose: 325 mg Amiodarone HCl (Amiodarone Hcl 200 Mg Tablet) 100 mg PO DAILY [facility] Last Admin: 09/22/23 08:19 Dose: 100 mg Amlodipine Besylate (Amlodipine Besylate 5 Mg Tablet) 5 mg PO BID [facility] Last Admin: 09/22/23 08:19 Dose: 5 mg Famotidine (Famotidine 20 Mg Tablet) 40 mg PO QDAC2 [facility] Last Admin: 09/22/23 09:28 Dose: 40 mg Levothyroxine Sodium (Levothyroxine Sodium 75 Mcg Tablet) 37.5 mcg PO DAILY@0600 [facility] Metoprolol Tartrate (Metoprolol Tartrate 25 Mg Tablet) 25 mg PO BID [facility] Last Admin: 09/22/23 08:19 Dose: 25 mg Non-Formulary Medication (Conjugated Estrogens [Premarin]) 1.25 mg PO EVERY OTHER DAY [facility] Last Admin: 09/22/23 08:21 Dose: Not Given Oxybutynin Chloride (Oxybutynin Chloride 5 Mg Tab.Er.24) 5 mg PO DAILY@2100 [facility] Potassium Chloride (Potassium Chloride 10 Meq Capsule.Er) 10 meq PO BIDWM2 [facility] Last Admin: 09/22/23 08:18 Dose: 10 meq Pregabalin (Pregabalin 75 Mg Capsule) 75 mg PO BID [facility] Last Admin: 09/22/23 08:19 Dose: 75 mg Sodium Chloride (0.9% Sodium Chloride 10 Ml Disp.Syrin) 1 syr IVF PRN PRN PRN Reason: To flush IV Last Admin: 09/22/23 05:17 Dose: 1 syr Tramadol HCl (Tramadol Hcl 50 Mg Tablet) 37.5 mg PO BID [facility] Last Admin: 09/22/23 08:20 Dose: 37.5 mg Discontinued Medications Amlodipine Besylate (Amlodipine Besylate 5 Mg Tablet) 5 mg PO BID [facility] Last Admin: 09/21/23 20:44 Dose: 5 mg Furosemide (Furosemide Inj 40 Mg/4 Ml Vial) 40 mg IVP ONCE ONE Stop: 09/21/23 17:08 Last Admin: 09/21/23 17:30 Dose: 40 mg Furosemide (Furosemide Inj 20 Mg/2 Ml Vial) 20 mg IVP Q8HR [facility] Last Admin: 09/22/23 05:37 Dose: 20 mg Levothyroxine Sodium (Levothyroxine Sodium 75 Mcg Tablet) 37.5 mcg PO DAILY@0600 [facility] Last Admin: 09/22/23 05:17 Dose: 37.5 mcg Oxybutynin Chloride (Oxybutynin Chloride 5 Mg Tab.Er.24) 5 mg PO DAILY@2100 [facility] Last Admin: 09/21/23 20:43 Dose: 5 mg Potassium Chloride (Potassium Chloride 10 Meq Capsule.Er) 10 meq PO BID [facility] Last Admin: 09/21/23 20:44 Dose: 10 meq Potassium Chloride (Potassium Chloride 20 Meq Tab) 40 meq PO ONCE ONE Stop: 09/22/23 08:14 Last Admin: 09/22/23 09:39 Dose: Not Given Potassium Chloride (Potassium Chloride 10 Meq Capsule.Er) 40 meq PO ONCE ONE Stop: 09/22/23 09:39 Last Admin: 09/22/23 09:53 Dose: 40 meq Pregabalin (Pregabalin 75 Mg Capsule) 75 mg PO BID [facility] Last Admin: 09/21/23 20:44 Dose: 75 mg Review of Systems Constitutional: Reports Fatigue and Weakness Head: Reports Normocephalic and Atraumatic Cardiovascular: Reports Edema; Denies Chest pain or Chest Pressure Respiratory: Reports Shortness of air; Denies Cough Gastrointestinal: Reports Hemorrhoids; Denies Nausea, Vomiting, Diarrhea, Abdominal pain or Melena Genitourinary: Denies Dysuria or Frequency Dermatologic: Denies Rashes Neurological: Reports Weakness and Problems with walking Physical examination Most Recent Vital Signs: Most Recent Vital Signs Temperature 97.8 F 09/22/23 05:48 Temperature Source Oral 09/22/23 05:48 Temperature Source Oral 09/21/23 16:20 Pulse Rate 64 09/22/23 05:48 Respiratory Rate 16 09/22/23 05:48 Blood Pressure 142/69 H 09/22/23 05:48 Blood Pressure Mean 93 09/22/23 05:48 Blood Pressure Left Arm 143/69 09/21/23 17:46 Blood Pressure Location Right Arm 09/21/23 22:00 Blood Pressure Position Supine 09/22/23 05:48 O2 Sat by Pulse Oximetry 97 09/22/23 05:48 Oxygen Delivery Method Nasal Cannula 09/22/23 10:00 Oxygen Flow Rate 2 09/22/23 10:00 Height 5 ft 9 in 09/21/23 17:46 Weight 168 lb 3.2 oz 09/21/23 17:46 Telemetry Type Remote Telemetry 09/22/23 07:00 Telemetry Monitoring Continues 09/22/23 07:00 Telemetry Heart Rate 72 09/22/23 07:00 Telemetry SPO2 96 09/22/23 07:00 EKG OR Interval 0.20 09/21/23 19:00 EKG QRS Interval 0.09 09/22/23 07:00 Telemetry Strip Reading Atrial Paced 09/22/23 07:00 Appearance: Positive Well-appearing, Well-nourished, No Apparent Distress and Alert and Oriented x3 Skin: Positive [place], Warm and Good Turgor; Negative Rashes HEENT: Positive Normocephalic and Atraumatic Neck: Positive Supple and Midline Trachea Chest/Lungs: Positive Clear to Auscultation Bilaterally; Negative Rales, Rhonci or Wheezes Heart: Positive RRR GI/: Positive Soft, Nontender, Bowel Sounds Normal and No Distention Extremities: Negative Edema Neurological: Positive Cranial Nerves Intact, Alert, Oriented and Other (+generalized weakness ) Psychiatric: Positive Oriented x4, Appropriate Mood and Appropriate Affect Labs This Visit Labs This Visit: Labs This Visit 09/21/23 09/21/23 09/21/23 15:54 16:12 16:32 WBC 6.79 RBC 3.16 L Hgb 7.6 L Hct 25.8 L MCV 81.6 MCH 24.1 L MCHC 29.5 L RDW Coeff of Erik 16.2 H Plt Count 226 Immature Gran % (Auto) 0.3 Neut % (Auto) 63.3 Lymph % (Auto) 21.1 Long % (Auto) 12.2 H Eos % (Auto) 2.7 Baso % (Auto) 0.4 Neut # (Auto) 4.3 Lymph # (Auto) 1.4 Long # (Auto) 0.8 Eos # (Auto) 0.2 Baso # (Auto) 0.0 Immature Gran # (Auto) 0.0 Sodium 137.5 Potassium 3.64 Chloride 102.3 Carbon Dioxide 28.8 Anion Gap 10.04 BUN 20.8 H Creatinine 1.38 H Estimated GFR (MDRD) 36.00 BUN/Creatinine Ratio 15.07 Glucose 105.7 Lactic Acid 0.98 Calcium 8.44 Iron TIBC % Saturation Ferritin Total Bilirubin 0.50 AST 38.6 H ALT 31.3 Alkaline Phosphatase 114.2 Troponin I < 0.012 NT-Pro-B Natriuret Pep 1780 H Total Protein 7.46 Albumin 4.17 Globulin 3.29 Albumin/Globulin Ratio 1.26 Vitamin B12 Folate TSH Urine Color Yellow Urine Clarity Clear Urine pH 7.0 Ur Specific [place] 1.015 Urine Protein Negative Urine Glucose (UA) Negative Urine Ketones Negative Urine Blood Negative Urine Nitrite Negative Urine Bilirubin Negative Urine Urobilinogen 1.0 H Ur Leukocyte Esterase Negative RSV Antigen Negative by naat SARS CoV-2 RNA Rapid [place] Negative Blood Type Antibody Screen Crossmatch ([facility]) 09/21/23 09/22/23 09/22/23 17:15 01:05 05:13 WBC 5.35 RBC 3.39 L Hgb 8.4 L 8.3 L Hct 27.9 L 27.8 L MCV 82.0 MCH 24.5 L MCHC 29.9 L RDW Coeff of Erik 16.4 H Plt Count 192 Immature Gran % (Auto) 0.2 Neut % (Auto) 52.9 Lymph % (Auto) 28.4 Long % (Auto) 13.8 H Eos % (Auto) 4.1 Baso % (Auto) 0.6 Neut # (Auto) 2.8 Lymph # (Auto) 1.5 Long # (Auto) 0.7 Eos # (Auto) 0.2 Baso # (Auto) 0.0 Immature Gran # (Auto) 0.0 Sodium 139.3 Potassium 3.22 L Chloride 102.0 Carbon Dioxide 34.5 H Anion Gap 6.02 BUN 19.9 H Creatinine 1.57 H Estimated GFR (MDRD) 31.00 BUN/Creatinine Ratio 12.67 Glucose 83.0 Lactic Acid Calcium 8.54 Iron 14.9 L TIBC 336 % Saturation 4 Ferritin 6.26 L Total Bilirubin 0.66 AST 29.2 ALT 26.5 Alkaline Phosphatase 93.5 Troponin I NT-Pro-B Natriuret Pep Total Protein 6.78 Albumin 3.78 Globulin 3.00 Albumin/Globulin Ratio 1.26 Vitamin B12 886 Folate > 20.00 TSH 1.970 Urine Color Urine Clarity Urine pH Ur Specific [place] Urine Protein Urine Glucose (UA) Urine Ketones Urine Blood Urine Nitrite Urine Bilirubin Urine Urobilinogen Ur Leukocyte Esterase RSV Antigen SARS CoV-2 RNA Rapid [place] Blood Type O POSITIVE Antibody Screen Negative Crossmatch ([facility]) See Detail Imaging Imaging: EXAM: CHEST RADIOGRAPH TECHNIQUE: Single frontal chest radiograph. HISTORY: Shortness of breath. COMPARISON: 05/19/2023. FINDINGS: Mild left basilar atelectasis. Lungs are otherwise clear. The heart is mildly enlarged. Calcification in the aorta consistent with atherosclerosis. Left-sided multi lead pacemaker. There is no pleural effusion. There is no pneumothorax. IMPRESSION: 1. Mild left basilar atelectasis. 2. Mild cardiomegaly and atherosclerosis. 3. Pacemaker. 4. Otherwise unremarkable chest radiograph. Review Statement Review Statement: I have independently reviewed and interpreted the labs/EKGs/imaging that were ordered by the ER provider. I have reviewed all outside records that are available currently in our EMR including imaging/notes/labs from previous visits. Plan Plan: 1. Acute hypoxic respiratory failure in setting of acute anemia and output failure - Wean O2 when able. Keep >92%. Stop lasix today, appears euvolemic. 2. Acute on chronic anemia in setting of hemorrhoids - Hold eliquis today. S/p 1U prbcs. Hgb 8.3. Iron low, pt doesn't want iron tab. Discussed multivitamin that includes iron. 3. Output failure in setting of anemia - Pt fluid overloaded initially, diuresed about 1600 out. Stop lasix. Wean O2. Echo in April normal EF. 4. Hypertension - Cont home meds 5. A fib - Cont home meds except eliquis 6. Hypothyroidism - Cont home meds 7. Chronic pain - Cont home meds 8. OAB - Cont home meds 9. Hypokalemia - Replaced 10. RENITA, stage I - Worsened with diuresis. Stopped lasix today. Will repeat tomorrow. DVT Prophylaxis: Holding in setting of anemia Time Spent: Greater than 80 minutes spent with patient, 50% of the time spent with this patient was devoted to counseling and coordination of care. [facility] minutes spent discussing advance care planning. DNI/CPR Admit to: Inpatient Dispo - Possible dc tomorrow Discussed Plan of Care with Dr. Svetlana Stephens. Medications Medication Orders: Medications Ordered Category Date Time Status 0.9 % Sodium Chloride [Saline Flush] Meds 09/21/23 15:53 Active 1 syr IVF PRN PRN Acetaminophen [Tylenol] Meds 09/21/23 22:10 Active 325 mg PO BID Acetaminophen [Tylenol] Meds 09/21/23 18:04 Active 650 mg PO Q4H PRN Amiodarone HCl [Cordarone] Meds 09/22/23 09:00 Active 100 mg PO DAILY Amlodipine Besylate [Norvasc] Meds 09/22/23 09:00 Active 5 mg PO BID Famotidine [Pepcid] Meds 09/22/23 09:00 Active 40 mg PO QDAC2 Levothyroxine Sodium [Synthroid] Meds 09/23/23 06:00 Active 37.5 mcg PO DAILY@0600 Metoprolol Tartrate [Lopressor] Meds 09/21/23 21:00 Active 25 mg PO BID Oxybutynin Chloride [Ditropan Xl] Meds 09/22/23 21:00 Active 5 mg PO DAILY@2100 Potassium Chloride [Micro-K Cap] Meds 09/22/23 07:30 Active 10 meq PO BIDWM2 Pregabalin [Lyrica] Meds 09/22/23 09:00 Active 75 mg PO BID Tramadol HCl [Ultram] Meds 09/21/23 22:10 Active 37.5 mg PO BID conjugated estrogens [Premarin] Meds 09/22/23 09:00 Active 1.25 mg PO EVERY OTHER DAY
[2023-09-22] MEDS: DITROPAN XL PO SCH (21:05)
[2023-09-23 05:22] LABS: BASOPHILS % (AUTO) 0.6 % (0.0-3.0); EOSINOPHILS # (AUTO) 0.3 K/ul (0.0-0.7); EOSINOPHILS % (AUTO) 5.4 % (0.0-7.0); HEMATOCRIT 26.9 % (37.0-47.0); IMMATURE GRANULOCYTE % (AUTO) 0.2 % (0.0-5.0); LYMPHOCYTES # (AUTO) 1.6 K/uL (0.60-3.4); LYMPHOCYTES % (AUTO) 34.7 (10.0-50.0); MEAN CORPUSCULAR HEMOGLOBIN 24.4 pg (27.0-31.0); MEAN CORPUSCULAR HGB CONC 29.7 (31.8-35.4); MONOCYTES # (AUTO) 0.6 K/uL (0.4-2.0); MONOCYTES % (AUTO) 13.8 (0-10); NEUTROPHILS # (AUTO) 2.1 K/ul (2.0-6.9); NEUTROPHILS % (AUTO) 45.3 % (42.2-75.2); PLATELET COUNT 183 10^3/uL (140-440); RDW COEFFICIENT OF VARIATION 16.9 % (11.6-14.8); RED BLOOD COUNT 3.28 10^6/ul (4.20-5.40); WHITE BLOOD COUNT 4.64 K/ul (4.6-10.2)
[2023-09-23 05:35] LABS: ALANINE AMINOTRANSFERASE 21.4 U/L (0-35); ALBUMIN 3.32 g/dL (3.5-5.0); ALKALINE PHOSPHATASE 93.9 U/L (53-141); ASPARTATE AMINO TRANSFERASE 25.2 U/L (14-36); BILIRUBIN,TOTAL 0.48 mg/dL (0.2-1.3); BLOOD UREA NITROGEN 21.9 mg/dL (7-17); CARBON DIOXIDE 30.8 mmol/L (22-30.0); CHLORIDE 101.7 mmol/L (98-107); CREATININE 1.45 mg/dL (0.60-1.30); POTASSIUM 3.44 mmol/L (3.5-5.1); SODIUM 137.6 mmol/L (134.5-145); TOTAL PROTEIN 6.23 g/dL (6.3-8.2)
[2023-09-23] MEDS: PEPCID PO SCH (05:42)
[2023-09-23] MEDS: SYNTHROID PO SCH (05:43)
[2023-09-23] MEDS: MICRO-K CAP PO SCH ×2 (07:54→16:56)
[2023-09-23] MEDS ORDERED: MICRO-K CAP PO ONE (09:00)
[2023-09-23] MEDS: FERROUS SULFATE PO SCH (09:11)
[2023-09-23] MEDS: TYLENOL PO SCH ×2 (09:11→20:21)
[2023-09-23] MEDS: NORVASC PO SCH ×2 (09:12→20:20)
[2023-09-23] MEDS: LOPRESSOR PO SCH ×2 (09:12→20:20)
[2023-09-23] MEDS: LYRICA PO SCH ×2 (09:12→20:20)
[2023-09-23] MEDS: ULTRAM PO SCH ×2 (09:13→20:20)
[2023-09-23] MEDS: CORDARONE PO SCH (09:13)
--- NOTE | 2023-09-23 10:41 | PCM.PROG ---
Date/Time Seen Date Seen by Provider: 09/23/23 Time Seen by Provider: 08:30 Provider Provider: LOIS LORD [facility]-C, [facility] Chief Complaint Chief Complaint: ANEMIA; CHF Subjective Subjective: Patient states she feels better today. Requiring 1L. Has diuresed over 4L. Took off O2 and she dropped to 83% on RA. Objective Appearance: Positive Well-appearing, Well-nourished, No Apparent Distress and Alert and Oriented x3 Chest/Lungs: Positive Clear to Auscultation Bilaterally; Negative Rales, Rhonci or Wheezes Heart: Positive RRR GI/: Positive Soft, Nontender, Bowel Sounds Normal and No Distention Neurological: Positive Cranial Nerves Intact, Alert, Oriented and Muscle Strength 5/5 in Upper and Lower Extremities Bilaterally Vital Signs Vital Signs: Vital Signs: Last 24 Hours 09/22/23 13:00 09/22/23 13:02 09/22/23 14:00 Temperature 97.8 F Temperature Source Temporal Artery Scan Pulse Rate 60 Respiratory Rate 16 Blood Pressure 102/55 L Blood Pressure Mean 70 Blood Pressure Location Right Arm Blood Pressure Position Supine O2 Sat by Pulse Oximetry 94 L 94 L Oxygen Delivery Method Nasal Cannula Room Air Oxygen Flow Rate 2 Telemetry Type Remote Telemetry Telemetry Monitoring Continues Telemetry Heart Rate 61 Telemetry SPO2 90 L EKG [place] Interval EKG QRS Interval 0.10 Telemetry Strip Reading Atrial Paced 09/22/23 14:00 09/22/23 14:40 09/22/23 19:00 Temperature Temperature Source Pulse Rate Respiratory Rate Blood Pressure Blood Pressure Mean Blood Pressure Location Blood Pressure Position O2 Sat by Pulse Oximetry 95 87 L Oxygen Delivery Method Nasal Cannula Room Air Oxygen Flow Rate 1 Telemetry Type Remote Telemetry Telemetry Monitoring Continues Telemetry Heart Rate 64 Telemetry SPO2 94 EKG [place] Interval EKG QRS Interval 0.08 Telemetry Strip Reading ATRIAL PACED 09/22/23 19:57 09/22/23 20:00 09/22/23 21:17 Temperature 98.2 F Temperature Source Oral Pulse Rate 62 Respiratory Rate 18 Blood Pressure 127/62 Blood Pressure Mean 83 Blood Pressure Location Right Arm Blood Pressure Position Supine O2 Sat by Pulse Oximetry 92 L Oxygen Delivery Method Nasal Cannula Nasal Cannula Nasal Cannula Oxygen Flow Rate 2 1 1 Telemetry Type Telemetry Monitoring Telemetry Heart Rate Telemetry SPO2 EKG KS Interval EKG QRS Interval Telemetry Strip Reading 09/23/23 01:00 09/23/23 05:43 09/23/23 05:49 Temperature 97.7 F Temperature Source Oral Pulse Rate 60 Respiratory Rate 20 Blood Pressure 117/65 Blood Pressure Mean 82 Blood Pressure Location Right Arm Blood Pressure Position Supine O2 Sat by Pulse Oximetry 93 L 94 L Oxygen Delivery Method Nasal Cannula Nasal Cannula Oxygen Flow Rate 1 1 Telemetry Type Remote Telemetry Telemetry Monitoring Continues Telemetry Heart Rate 60 Telemetry SPO2 93 EKG [place] Interval EKG QRS Interval 0.08 Telemetry Strip Reading ATRIAL PACED 09/23/23 07:00 09/23/23 08:00 Temperature Temperature Source Pulse Rate Respiratory Rate Blood Pressure Blood Pressure Mean Blood Pressure Location Blood Pressure Position O2 Sat by Pulse Oximetry Oxygen Delivery Method Nasal Cannula Oxygen Flow Rate 1 Telemetry Type Remote Telemetry Telemetry Monitoring Continues Telemetry Heart Rate 66 Telemetry SPO2 91 L EKG [place] Interval 0.20 EKG QRS Interval 0.08 Telemetry Strip Reading A paced with 1 avb Lab Results Lab Results: Lab Results: Last 24 Hours 09/23/23 05:04 WBC 4.64 RBC 3.28 L Hgb 8.0 L Hct 26.9 L MCV 82.0 MCH 24.4 L MCHC 29.7 L RDW Coeff of Erik 16.9 H Plt Count 183 Immature Gran % (Auto) 0.2 Neut % (Auto) 45.3 Lymph % (Auto) 34.7 [place] % (Auto) 13.8 H Eos % (Auto) 5.4 Baso % (Auto) 0.6 Neut # (Auto) 2.1 Lymph # (Auto) 1.6 [place] # (Auto) 0.6 Eos # (Auto) 0.3 Baso # (Auto) 0.0 Immature Gran # (Auto) 0.0 Sodium 137.6 Potassium 3.44 L Chloride 101.7 Carbon Dioxide 30.8 H Anion Gap 8.54 BUN 21.9 H Creatinine 1.45 H Estimated GFR (MDRD) 34.00 BUN/Creatinine Ratio 15.10 Glucose 90.0 Calcium 8.00 L Total Bilirubin 0.48 AST 25.2 ALT 21.4 Alkaline Phosphatase 93.9 Total Protein 6.23 L Albumin 3.32 L Globulin 2.91 Albumin/Globulin Ratio 1.14 Additional Comments Additional Comments: I have independently reviewed and interpreted the labs/EKGs/imaging ordered during this hospital stay. I have reviewed outside records that are available in our EMR that pertain to medical stay including imaging/notes/labs from previous visits. Active Medications Active Medications: Medications Generic Name Dose Route Start Last Admin Trade Name Hans PRN Reason Stop Dose Admin Acetaminophen 650 mg 09/21/23 18:04 Acetaminophen 325 Mg Tablet PO Q4H PRN Mild Pain Acetaminophen 325 mg 09/21/23 22:10 09/23/23 09:11 Acetaminophen 325 Mg Tablet PO 325 mg BID SHRUTHI Administration Amiodarone HCl 100 mg 09/22/23 09:00 09/23/23 09:13 Amiodarone Hcl 200 Mg Tablet PO 100 mg DAILY SHRUTHI Administration Amlodipine Besylate 5 mg 09/22/23 09:00 09/23/23 09:12 Amlodipine Besylate 5 Mg Tablet PO 5 mg BID SHRUTHI Administration Famotidine 40 mg 09/22/23 09:00 09/23/23 05:42 Famotidine 20 Mg Tablet PO 40 mg QDAC2 SHRUTHI Administration Ferrous Sulfate 324 mg 09/23/23 09:00 09/23/23 09:11 Ferrous Sulfate 324 Mg Tablet.Dr PO 324 mg DAILY SHRUTHI Administration Furosemide 40 mg 09/23/23 12:00 Furosemide Inj 40 Mg/4 Ml Vial IVP 09/23/23 12:01 ONCE ONE Levothyroxine Sodium 37.5 mcg 09/23/23 06:00 09/23/23 05:43 Levothyroxine Sodium 75 Mcg Tablet PO 37.5 mcg DAILY@0600 SHRUTHI Administration Metoprolol Tartrate 25 mg 09/21/23 21:00 09/23/23 09:12 Metoprolol Tartrate 25 Mg Tablet PO 25 mg BID SHRUTHI Administration Non-Formulary Medication 1.25 mg 09/22/23 09:00 09/22/23 08:21 Conjugated Estrogens [Premarin] PO Not Given EVERY OTHER DAY SHRUTHI Oxybutynin Chloride 5 mg 09/22/23 21:00 09/22/23 21:05 Oxybutynin Chloride 5 Mg Tab.Er.24 PO 5 mg DAILY@2100 SHRUTHI Administration Potassium Chloride 10 meq 09/22/23 07:30 09/23/23 07:54 Potassium Chloride 10 Meq Capsule.Er PO 10 meq BIDWM2 SHRUTHI Administration Pregabalin 75 mg 09/22/23 09:00 09/23/23 09:12 Pregabalin 75 Mg Capsule PO 75 mg BID SHRUTHI Administration Sodium Chloride 1 syr 09/21/23 15:53 09/22/23 05:17 0.9% Sodium Chloride 10 Ml Disp.Syrin IVF 1 syr PRN PRN Administration To flush IV Tramadol HCl 37.5 mg 09/21/23 22:10 09/23/23 09:13 Tramadol Hcl 50 Mg Tablet PO 37.5 mg BID SHRUTHI Administration Plan Plan: 1. Acute hypoxic respiratory failure in setting of acute anemia and output failure - Wean O2 when able. Keep >92%. Giving another 1U of PRBCs, lasix 40 ivp after, H&H one hour later. 2. Acute on chronic anemia in setting of hemorrhoids - Hold eliquis. S/p 1U prbcs. Hgb 8.0. Iron low, pt doesn't want iron tab. Giving another unit today. 3. Output failure in setting of anemia - Pt fluid overloaded initially, diuresed about 4300 out. Wean O2. Echo in April normal EF. Plan as above. 4. Hypertension - Cont home meds 5. A fib - Cont home meds except eliquis 6. Hypothyroidism - Cont home meds 7. Chronic pain - Cont home meds 8. OAB - Cont home meds 9. Hypokalemia - Replaced 10. RENITA, stage I - Worsened with diuresis. Will repeat tomorrow. DVT Prophylaxis: Holding in setting of anemia Review Statement Review Statement: I have personally discussed and reviewed the patient's visit/currently labs/imaging/decision making with Dr. Stephens, my supervising attending. Greater that 50 minutes spent with patient, 50% of the time spent with this patient was devoted to counseling and coordination of care.
--- NOTE | 2023-09-23 11:44 | RS.OTCNOTE ---
OT Case Note Date of Note: 09/23/23 Title: OT case note Note: OT attempted to see patient for consult. Pt receiving blood. OT to try this afternoon.
[2023-09-23] MEDS ORDERED: LASIX IVP ONE ×2 (12:00→14:30)
[2023-09-23 15:22] LABS: HEMATOCRIT 34.2 % (37.0-47.0); HEMOGLOBIN 10.6 g/dl (12.0-16.0)
[2023-09-23] MEDS: DITROPAN XL PO SCH (20:19)
[2023-09-24] MEDS: SYNTHROID PO SCH (05:28)
[2023-09-24] MEDS: PEPCID PO SCH (05:29)
[2023-09-24 05:38] LABS: BASOPHILS % (AUTO) 0.9 % (0.0-3.0); EOSINOPHILS # (AUTO) 0.3 K/ul (0.0-0.7); HEMATOCRIT 31.6 % (37.0-47.0); HEMOGLOBIN 9.6 g/dl (12.0-16.0); IMMATURE GRANULOCYTE % (AUTO) 0.2 % (0.0-5.0); LYMPHOCYTES # (AUTO) 1.4 K/uL (0.60-3.4); LYMPHOCYTES % (AUTO) 31.2 (10.0-50.0); MEAN CORPUSCULAR HEMOGLOBIN 25.3 pg (27.0-31.0); MEAN CORPUSCULAR HGB CONC 30.4 (31.8-35.4); MEAN CORPUSCULAR VOLUME 83.4 fl (81.0-99.0); MONOCYTES # (AUTO) 0.8 K/uL (0.4-2.0); MONOCYTES % (AUTO) 17.7 (0-10); PLATELET COUNT 171 10^3/uL (140-440); RDW COEFFICIENT OF VARIATION 16.9 % (11.6-14.8); RED BLOOD COUNT 3.79 10^6/ul (4.20-5.40); WHITE BLOOD COUNT 4.52 K/ul (4.6-10.2)
[2023-09-24 05:48] VITALS: RESP 20
[2023-09-24 05:48] LABS: ALANINE AMINOTRANSFERASE 18.7 U/L (0-35); ALBUMIN 3.54 g/dL (3.5-5.0); ALKALINE PHOSPHATASE 83.4 U/L (53-141); BILIRUBIN,TOTAL 0.48 mg/dL (0.2-1.3); CALCIUM 8.11 mg/dL (8.4-10.2); CARBON DIOXIDE 32.9 mmol/L (22-30.0); CREATININE 1.38 mg/dL (0.60-1.30); GLUCOSE 90.6 mg/dL (74-106); POTASSIUM 3.44 mmol/L (3.5-5.1); SODIUM 137.3 mmol/L (134.5-145); TOTAL PROTEIN 6.52 g/dL (6.3-8.2)
[2023-09-24] MEDS: MICRO-K CAP PO SCH (07:32)
[2023-09-24] MEDS ORDERED: K-DUR PO ONE (08:06)
[2023-09-24] MEDS ORDERED: MICRO-K CAP PO ONE (08:30)
[2023-09-24] MEDS: LOPRESSOR PO SCH (08:56)
[2023-09-24] MEDS: NORVASC PO SCH (08:56)
[2023-09-24] MEDS: TYLENOL PO SCH (08:56)
[2023-09-24] MEDS: CORDARONE PO SCH (08:56)
[2023-09-24] MEDS: FERROUS SULFATE PO SCH (08:56)
[2023-09-24] MEDS: LYRICA PO SCH (08:56)
[2023-09-24] MEDS: ULTRAM PO SCH (08:57)
--- NOTE | 2023-09-24 13:41 | DCSUM ---
Admission Date Admission Date: 09/21/23 Discharge Date Discharge Date: 09/24/23 Admission Diagnosis Admission Diagnosis: 1. Acute hypoxic respiratory failure in setting of acute anemia and output failure 2. Acute on chronic anemia in setting of hemorrhoids 3. Output failure in setting of anemia 4. RENITA, stage I Discharge Diagnosis Discharge Diagnosis: 1. Acute hypoxic respiratory failure in setting of acute anemia and output failure , Improved 2. Acute on chronic anemia in setting of hemorrhoids - Improved 3. Output failure in setting of anemia - Resolved 4. Hypertension - Cont home meds 5. A fib - Cont home meds 6. Hypothyroidism - Cont home meds 7. Chronic pain - Cont home meds 8. OAB - Cont home meds 9. Hypokalemia - Replaced 10. RENITA, stage I - Improved Hospital Provider Hospital Provider: LO[facility] LORD [facility]-C, [facility] Physician Primary Care Physician: DIMAS HIRSCH MD Summary of History and Physical Summary of History and Physical: Patient is a 88 year old from home with pmhx of hypothyroidism, shingles, pacemaker, chronic anemia, hypertension, fibromyalgia, a fib who presented to ER for sob/fatigue. Patient had been sent over by her PCP. Patient states she started feeling tired last week. Thought she overdid it with Thanksgiving. Then became SOB over the last few days. [place]chard so weak she was in her chair for about 24 hours. Didn't feel she could even take a shower. Noticed haley lower ext swelling yesterday which was new. She denies hx of CHF. She has hx of anemia but doesn't want to take iron. She states she has a hemorrhoid that bleeds often, especially at night. She is on eliquis for a fib. No melena. In ER she was found to have an acutely low hgb, hypoxic in the 80s placed on 2L, elevated bnp, lower ext edema. She was given lasix 40 x1. She was admitted to [facility] for further evaluation and treatment. On my evaluation this morning, patient is feeling some better. She received 1U PRBCS overnight and has been getting lasix. She is still requiring 2L. She diuresed about 1600 cc. She states her swelling is better from what she can tell. Hospital Course Subjective: Patient was transfused 1U PRBCs and diuresed with IV lasix. She was doing well and feeling better however still hypoxic. She was given another 1u of PRBCs and another dose of lasix 40 ivp. Hgb now up to 9.6. Patient felt at her baseline. O2 saturation was normal while awake but would drop into 80s while she was sleep ing. Patient appears euvolemic at this point. No longer sob or weak. ROSE could be contributing, consider outpatient work up. However, patient qualified for home O2 and is requesting to go home. She will wear O2 at night and prn during the day. She has not had any bleeding while hospitalized. She is worried about stopping her blood thinner due stroke risk. Advised to continue but discuss further with lehr cutter at f/u. Echo this past summer had normal EF. Discussed outpatient hemorrhoid treatment options. Patient is not interested at this time. Advised iron tablet as iron is low. She does not like taking iron tablets. Advised she can take a womens multivitamin tablet or gummy that has iron in it at the least. She is considering this. Patient discharged home in stable condition. Appearance: Pleasant, No Apparent Distress and Alert HEENT: MMM and Supple CVS: No Murmur Abdomen: Soft, Non-Tender and No Distention Respiratory: No Dyspnea Extremities: No Edema Vital Signs: Most Recent Vital Signs Temperature 97.9 F 09/24/23 05:46 Temperature Source Temporal Artery Scan 09/24/23 05:46 Temperature Source Oral 09/21/23 16:20 Pulse Rate 62 09/24/23 05:46 Respiratory Rate 20 09/24/23 05:46 Blood Pressure 116/60 09/24/23 05:46 Blood Pressure Mean 78 09/24/23 05:46 Blood Pressure Left Arm 143/69 09/21/23 17:46 Blood Pressure Location Left Arm 09/24/23 05:46 Blood Pressure Position Supine 09/24/23 05:46 O2 Sat by Pulse Oximetry 94 L 09/24/23 10:00 Oxygen Delivery Method Nasal Cannula 09/24/23 10:00 Oxygen Flow Rate 1 09/24/23 10:00 Height 5 ft 9 in 09/21/23 17:46 Weight 168 lb 3.2 oz 09/21/23 17:46 Telemetry Type Remote Telemetry 09/24/23 07:00 Telemetry Monitoring Continues 09/24/23 07:00 Telemetry Heart Rate 60 09/24/23 07:00 Telemetry SPO2 98 09/24/23 07:00 EKG AZ Interval 0.22 H 09/24/23 07:00 EKG QRS Interval 0.06 09/24/23 07:00 Telemetry Strip Reading SR with 1 AVB 09/24/23 07:00 Imaging: EXAM: CHEST RADIOGRAPH TECHNIQUE: Single frontal chest radiograph. HISTORY: Shortness of breath. COMPARISON: 05/19/2023. FINDINGS: Mild left basilar atelectasis. Lungs are otherwise clear. The heart is mildly enlarged. Calcification in the aorta consistent with atherosclerosis. Left-sided multi lead pacemaker. There is no pleural effusion. There is no pneumothorax. IMPRESSION: 1. Mild left basilar atelectasis. 2. Mild cardiomegaly and atherosclerosis. 3. Pacemaker. 4. Otherwise unremarkable chest radiograph. Lab Results Last 24 Hours: 09/24/23 09/24/23 09/23/23 11:25 05:22 15:15 WBC 4.52 L RBC 3.79 L Hgb 9.7 L 9.6 L 10.6 L Hct 31.6 L 34.2 L D MCV 83.4 MCH 25.3 L MCHC 30.4 L RDW Coeff of Erik 16.9 H Plt Count 171 Immature Gran % (Auto) 0.2 Neut % (Auto) 44.0 Lymph % (Auto) 31.2 King % (Auto) 17.7 H Eos % (Auto) 6.0 Baso % (Auto) 0.9 Neut # (Auto) 2.0 Lymph # (Auto) 1.4 King # (Auto) 0.8 Eos # (Auto) 0.3 Baso # (Auto) 0.0 Immature Gran # (Auto) 0.0 Sodium 137.3 Potassium 3.44 L Chloride 101.0 Carbon Dioxide 32.9 H Anion Gap 6.84 BUN 20.0 H Creatinine 1.38 H Estimated GFR (MDRD) 36.00 BUN/Creatinine Ratio 14.49 Glucose 90.6 Calcium 8.11 L Total Bilirubin 0.48 AST 21.0 ALT 18.7 Alkaline Phosphatase 83.4 Total Protein 6.52 Albumin 3.54 Globulin 2.98 Albumin/Globulin Ratio 1.18 Crossmatch (AHG) 09/21/23 17:15 WBC RBC Hgb Hct MCV MCH MCHC RDW Coeff of Erik Plt Count Immature Gran % (Auto) Neut % (Auto) Lymph % (Auto) King % (Auto) Eos % (Auto) Baso % (Auto) Neut # (Auto) Lymph # (Auto) King # (Auto) Eos # (Auto) Baso # (Auto) Immature Gran # (Auto) Sodium Potassium Chloride Carbon Dioxide Anion Gap BUN Creatinine Estimated GFR (MDRD) BUN/Creatinine Ratio Glucose Calcium Total Bilirubin AST ALT Alkaline Phosphatase Total Protein Albumin Globulin Albumin/Globulin Ratio Crossmatch (AHG) See Detail Discharge Instructions Discharge Planning: Discharge Planning > [address] Svetlana Stephens. Discharge Medications: Medications at Discharge (Home Meds & RX) amlodipine 5 mg tablet 5 mg PO BID #180 tab-caps 01/12/23 metoprolol tartrate 25 mg tablet 25 mg PO BID #180 tabs 01/12/23 potassium chloride 10 mEq capsule,extended release 10 meq PO BID 90 days #180 tab-caps 01/12/23 amiodarone 200 mg tablet 100 mg PO DAILY 05/19/23 oxybutynin chloride 5 mg tablet,extended release 24 hr See Rx Instructions .Route .COMPLEX #90 tabs 05/27/23 pregabalin 75 mg capsule (Lyrica) 75 mg PO BID #180 tab-caps 08/14/23 tramadol 37.5 mg-acetaminophen 325 mg tablet 1 tab PO BID #180 tab-caps 08/14/23 levothyroxine 37.5 mcg capsule 37.5 mcg PO DAILY #30 caps 08/20/23 famotidine 40 mg tablet 40 mg PO DAILY #90 tab-caps 09/08/23 hydrochlorothiazide 50 mg tablet See Rx Instructions .Route .COMPLEX #90 tabs 09/08/23 conjugated estrogens 1.25 mg tablet (Premarin) 1.25 mg PO EVERY OTHER DAY #45 tabs 09/09/23 apixaban 2.5 mg tablet (Eliquis) 2.5 mg PO BID #180 tabs 09/21/23 Discharge Plan Discharge Discharge Orders: Discharge Patient (ONCE); Ordered 09/24/23 Ordered By: LOIS LORD Activity Restrictions/Additional Instructions: DISCHARGE TO HOME HOME O2 SET UP DX: ACUTE ON CHRONIC ANEMIA, ACUTE CHF ACTIVITY: TOLERATED WEAR O2 WHEN SLEEPING AND NEEDED THROUGH THE DAY RECOMMEND REPEAT CBC WITHIN 1 WEEK TO MONITOR BLOOD COUNTS CAN DISCUSS NEED FOR BLOOD THINNER WITH CARDIOLOGY CONTINUE ELIQUIS FOR NOW DIET: HEART HEALTHY RECOMMEND IRON SUPPLEMENT Instructions: Anemia (GEN) Patient Disposition: HOME SELF-CARE Prescriptions: Continued amlodipine 5 mg tablet 5 mg PO BID Qty: 180 2RF Rx Instructions: Take one tablet twice daily. metoprolol tartrate 25 mg tablet 25 mg PO BID Qty: 180 1RF potassium chloride 10 mEq capsule, extended release 10 meq PO BID 90 Days Qty: 180 3RF tramadol-acetaminophen 37.5-325 mg tablet 1 tab PO BID Qty: 180 1RF Rx Instructions: Chronic pain pregabalin [Lyrica] 75 mg capsule 75 mg PO BID Qty: 180 1RF Rx Instructions: Take 1 tablet twice daily. levothyroxine 37.5 mcg capsule 37.5 mcg PO DAILY Qty: 30 2RF hydrochlorothiazide 50 mg tablet See Rx Instructions .ROUTE .COMPLEX Qty: 90 1RF Dose Instruction: TAKE 1 TABLET DAILY Rx Instructions: TAKE 1 TABLET DAILY famotidine 40 mg tablet 40 mg PO DAILY Qty: 90 1RF Premarin 1.25 mg tablet 1.25 mg PO EVERY OTHER DAY Qty: 45 1RF amiodarone 200 mg tablet 100 mg PO DAILY Eliquis 2.5 mg tablet 2.5 mg PO BID Qty: 180 0RF oxybutynin chloride 5 mg tablet extended release 24hr See Rx Instructions .ROUTE .COMPLEX Qty: 90 1RF Dose Instruction: TAKE 1 TABLET DAILY Rx Instructions: TAKE 1 TABLET DAILY Did you review [place] [employer] for ALL controlled substances?: Not Applicable Discussed opioids are addictive and Narcan is available by prescription or from pharmacy.: No Condition: Stable Referrals: DIMAS HIRSCH MD [Primary Care Provider] - 09/29/23 1:00 pm
[2023-09-24 14:38] VITALS: BP 112/64; PULSE 67; TEMP 98
== END 2023-09-24 16:05 | disposition home or self-care (01) | DRG 811 ==
LOC: ED 15:51 → MEDSURG B 17:17
PROVIDERS: ADMIT Hospitalist; ATTEND Physician Assistant
DX: I50.9 Heart failure, unspecified; J96.01 Acute respiratory failure with hypoxia; D64.9 Anemia, unspecified; Z79.01 Long term (current) use of anticoagulants; I70.90 Unspecified atherosclerosis; I10 Essential (primary) hypertension; Z20.822 Contact with and (suspected) exposure to COVID-19; N17.9 Acute kidney failure, unspecified; R53.83 Other fatigue; Z95.0 Presence of cardiac pacemaker; G89.29 Other chronic pain; I48.91 Unspecified atrial fibrillation; E03.9 Hypothyroidism, unspecified; J98.11 Atelectasis; E87.6 Hypokalemia; K64.9 Unspecified hemorrhoids; N32.81 Overactive bladder; I51.7 Cardiomegaly